=== PATIENT | female | born 1945 | race Caucasian/White ===

== ENCOUNTER → 2019-10-15 | Outpatient (CLI) | payer OTHER ==
[2016-10-19 11:00] VITALS: BP 135/57
[~2019-10-15] MED LIST: AMLO10TA8 PO; AMOX1TAB11 PO; AMOX875T PO; ASPI-482 PO; CETI10TA16 PO; CHOL100013 PO; CIPR500T94 PO; DOCU-109 PO; HYDR-2761 PO; LOSA1TAB22 PO; METO-269 PO; MONT10TA49 PO; MULT-658 PO; ONDA4TAB10 SL; PHEN-318 PO
--- NOTE | 2019-10-15 14:57 | RAD ---
Right lower extremity venous duplex study 10/15/2019 2:54 PM Clinical History: Right leg edema Technique: Using a combination of real time ultrasound imaging and color-flow and pulse Doppler imaging techniques, including spectral analysis, graded compression and augmentation, duplex evaluation of the deep venous system of the right lower extremity was performed. Multiple images were obtained. Findings: There is no sonographic evidence of deep venous thrombosis involving the visualized deep venous structures of the right lower extremity Impression: No evidence of deep venous thrombosis involving the right lower extremity Electronically signed by: Jose Hill MD (10/15/2019 2:54 PM) [id number]
== END | disposition home or self-care (01) ==
LOC: US 13:37
PROVIDERS: ATTEND Family Medicine
DX: R60.0 Localized edema (principal)
CPT/HCPCS: 93971

== ENCOUNTER 2020-08-01 04:40 | Inpatient (IN) | payer MEDICARE, OTHER ==
[~2020-08-01] VITALS: Ht 165.1 cm; Wt 89.1 kg
--- NOTE | 2020-08-01 05:23 | PHYS DOC ---
Past Medical History Past Medical History: Arthritis, Hypertension, Other Additional Past Medical Histor: shingles, pneumonia, IBS (ROXANNE KAUR DO) Past Surgical History: Hysterectomy, Tonsillectomy (VINCENTROXANNE Esther LUCIA) Smoking Status: Never Smoker Alcohol Use: None Drug Use: None (VINCENTROXANNE Esther LUCIA) General Adult EDM: Chief Complaint: ABDOMINAL PAIN HPI: HPI: Patient is a 74 year old female with a past medical history of hypertension and surgical history of appendectomy presents with the chief complaint of abdominal pain. Onset of abdominal pain 2200hrs. Pain located epigastric/LUQ with radiation to right flank and to right shoulder blade. Pain has been constant since onset and fluctuates in intensity. Patient has single episode of vomiting in triage-- nursing states emesis smelled like stool. Patient states she has had urinary frequency since onset of pain but denies any dysuria. Last bowel movement was Saturday. Patient denies any chest pain or shortness of breath. (ROXANNE KAUR DO) Review of Systems: Review of Systems: Constitutional: Denies fever or chills. [] Eyes: Denies change in visual acuity. [] HENT: Denies nasal congestion or sore throat. [] Respiratory: Denies cough or shortness of breath. [] Cardiovascular: Denies chest pain or edema. [] GI: positive abdominal pain nausea and vomiting. : Denies dysuria. [positive urinary frequency] Musculoskeletal: Denies back pain or joint pain. [] Integument: Denies rash. [] Neurologic: Denies headache, focal weakness or sensory changes. [] Endocrine: Denies polyuria or polydipsia. [] Lymphatic: Denies swollen glands. [] Psychiatric: Denies depression or anxiety. [] (ROXANNE KAUR DO) Heart Score: Risk Factors: Risk Factors: DM, Current or recent (<one month) smoker, HTN, HLP, family history of CAD, obesity. Risk Scores: Score 0 - 3: 2.5% MACE over next 6 weeks - Discharge Home Score 4 - 6: 20.3% MACE over next 6 weeks - Admit for Clinical Observation Score 7 - 10: 72.7% MACE over next 6 weeks - Early Invasive Strategies (ROXANNE KAUR DO) Allergies: Allergies: Allergies Coded Allergies Type Severity Reaction Last Updated Verified No Known Drug Allergies 10/17/16 No (ROXANNE KAUR DO) Physical Exam: PE: Constitutional: Well developed, well nourished, no acute distress, non-toxic appearance. [] HENT: Normocephalic, atraumatic, bilateral external ears normal, oropharynx moist, no oral exudates, nose normal. [] Eyes: PERRLA, EOMI, conjunctiva normal, no discharge. [] Neck: Normal range of motion, no tenderness, supple, no stridor. [] Cardiovascular:Heart rate regular rhythm, no murmur [] Lungs & Thorax: Bilateral breath sounds clear to auscultation [] Abdomen: Bowel sounds normal, soft, tenderness epigastric and RUQ, no masses, no pulsatile masses. [] Skin: Warm, dry, no erythema, no rash. [] Back: No tenderness, no CVA tenderness. [] Extremities: No tenderness, no cyanosis, no clubbing, ROM intact, no edema. [] Neurologic: Alert and oriented X 3, normal motor function, normal sensory function, no focal deficits noted. [] Psychologic: Affect normal, judgement normal, mood normal. [] (ROXANNE KAUR DO) Current Patient Data: Vital Signs: Vital Signs Date Time Temp Pulse Resp B/P (MAP) Pulse Ox O2 Delivery O2 Flow Rate FiO2 08/01/20 04:42 97.7 70 18 164/79 (107) 97 Room Air 97.7 (ROXANNE KAUR DO) EKG: EKG: ekg 0516hrs heart rate [address] elevation no st depression no acute [place] [] (ROXANNE KAUR DO) Radiology/Procedures: Radiology/Procedures: [] (ROXANNE KAUR DO) Impression: [facility] [address] [place] [address] IMAGING REPORT Signed PATIENT: TORY BECKMAN ACCOUNT: [id number] : 1945 LOCATION: ER AGE: 74 SEX: F EXAM STATUS: REG ER ORD. PHYSICIAN: ROXANNE KAUR DO REASON: abd pain, OMNI 300 , 60 ML IV PROCEDURE: CT ABD PELV W/ IV CONTRST ONLY PQRS Compliance Statement: One or more of the following individualized dose reduction techniques were utilized for this examination: 1. Automated exposure control 2. Adjustment of the mA and/or kV according to patient size 3. Use of iterative reconstruction technique CT ABD PELV W/ IV CONTRST ONLY Clinical Indication: Reason: abd pain, Comparison: CT abdomen and pelvis without contrast October 16, 2016. Technique: Helical CT imaging of the abdomen and pelvis is performed after 60 cc of Omnipaque 300 IV contrast. Oral contrast not administered. Findings: There are a couple of sub-5 mm nodules in the lung bases. Nodules more inferiorly are stable and therefore benign. Not previously imaged there is a nodule on the first image measuring 5 mm. Cardiac size normal. There is an 11 mm right cardiophrenic lymph node, previously 7 mm. 4.2 cm right hepatic cyst is unchanged. Second cyst in segment 6 appears slightly smaller. Third small cyst in segment 6 is stable. There is mild periportal edema centrally. Correlate to whether there has been recent IV hydration. The gallbladder, spleen, pancreas, adrenal glands, and abdominal aorta caliber are normal. Small left renal cyst is stable and does not require follow-up. Kidneys enhance symmetrically, no hydronephrosis. There is at least one punctate nonobstructing calculus in each kidney. Stomach unremarkable. There is no dilated small bowel. Descending colon is decompressed, limiting evaluation. Appendix is not seen, no secondary signs of appendicitis. No colon wall thickening is identified. No abdominal adenopathy or free fluid. Urinary bladder is normal. There is a partially calcified 2.4 cm uterine fibroid. There is no pelvic free fluid. Mild grade 1 anterolisthesis of L4 and L5. There is disc space narrowing of L5/S1. IMPRESSION: 1. No acute abdominal or pelvic abnormality. 2. There is a 5 mm noncalcified nodule in the right lower lobe. Nodule not previously seen. Recommend CT chest follow-up in 12 months per Fleischner Society guidelines. 3. Right cardiophrenic lymph node has mildly increased in size. Suggest attention on follow-up. 4. Stable hepatic cysts. 5. Punctate bilateral nonobstructing renal calculi. 6. Small partially calcified uterine fibroid. Electronically signed by: Paul Fam MD (08/01/2020 6:57 AM) [facility] DICTATED and SIGNED BY: PAUL FAM MD DATE: 08/01/20 0657 [facility] [address] [place] [address] IMAGING REPORT Signed PATIENT: TORY BECKMAN ACCOUNT: [id number] : 1945 LOCATION: ER AGE: 74 SEX: F EXAM STATUS: REG ER ORD. PHYSICIAN: GALDINO MORRIS DO REASON: RUQ abdominal pain, nausea, vomiting PROCEDURE: ABDOMEN LTD ABDOMEN LTD History: Reason: RUQ abdominal pain, nausea, vomiting / Spl. Instructions: / History: Comparison: CT August 01, 2020. Technique: Transabdominal ultrasound images are obtained of the right upper quadrant. Findings: Visualized pancreas is unremarkable. Liver is normal in echogenicity. Hepatic cysts largest measuring 4.5 cm and 1.7 cm Portal flow is hepatopedal. Cholelithiasis. No gallbladder wall thickening. No pericholecystic fluid. Common bile duct measures 7.8 mm in diameter. The right kidney measures 10.6 x 4.9 x 4.3 cm. No hydronephrosis. Visualized portions of the aorta and IVC have normal caliber. IMPRESSION: 1. Cholelithiasis. 2. Borderline dilated common bile duct, may relate to patient's age. Recommend correlation with biliary lab values. If persistent clinical concern, MRI/MRCP can further evaluate. 3. Hepatic cysts. Electronically signed by: Demetrius Sanders DO (08/01/2020 8:32 AM) [facility] DICTATED and SIGNED BY: DEMETRIUS SANDERS DO DATE: 08/01/20831 (GALDINO MORRIS DO) Course & Med Decision Making: Course & Med Decision Making Pertinent Labs and Imaging studies reviewed. (See chart for details) [] Based upon initial exam work-up consisted of EKG CBC CMP troponin UA and CT abdomen pelvis. Differential diagnosis include [place], gallbladder disease, bowel obstruction, urinary tract infection. After initial examination treatment included IV fluids. Patient declined any pain or nausea medications at this time. (ROXANNE KAUR DO) Dragon Disclaimer: Dragon Disclaimer: This electronic medical record was generated, in whole or in part, using a voice recognition dictation system. (ROXANNE KAUR DO) Departure Departure Impression: Primary Impression: Abdominal pain Additional Impression: Biliary colic Disposition: ADMITTED INPATIENT Admitting Physician: VIJI (DR. BELLAMY) (GALDINO MORRIS DO) Condition: IMPROVED Referrals: Jv WORLEY MD (PCP) Justicifation of Admission Dx: Justifications for Admission: Justification of Admission Dx: Yes (BILIARY COLIC) (GALDINO MORRIS DO) ROXANNE AKUR DO Aug 01, 2020 05:23 GALDINO MORRIS DO Aug 01, 2020 09:35
[2020-08-01 05:46] LABS: CALCIUM 9.5 mg/dL (8.5-10.1); GFR 54.5; POTASSIUM 3.9 mmol/L (3.5-5.1)
[2020-08-01 05:52] LABS: ALBUMIN 3.3 g/dL (3.4-5.0); ALBUMIN/GLOBULIN RATIO 0.9 (1.0-1.7); BASO # 0.1 x10^3/uL (0.0-0.2); BASO % 1 % (0-3); EOS # 0.6 x10^3/uL (0.0-0.7); EOS % 5 % (0-3); HEMATOCRIT 43.2 % (36.0-47.0); HEMOGLOBIN 14.6 g/dL (12.0-15.5); LYMPH # 1.6 x10^3/uL (1.0-4.8); LYMPH % 13 % (24-48); MEAN CORPUSCULAR HEMOGLOBIN 30 pg (25-35); MEAN CORPUSCULAR HGB CONC 34 g/dL (31-37); MEAN CORPUSCULAR VOLUME 88 fL (79-100); MONO # 0.8 x10^3/uL (0.0-1.1); MONO % 7 % (0-9); NEUT # 8.9 x10^3/uL (1.8-7.7); NEUT % 74 % (31-73); PLATELET COUNT 272 x10^3/uL (140-400); RED BLOOD COUNT 4.89 x10^6/uL (3.50-5.40); RED CELL DISTRIBUTION WIDTH 13.5 % (11.5-14.5); TOTAL BILIRUBIN 0.6 mg/dL (0.2-1.0); TOTAL PROTEIN 7.1 g/dL (6.4-8.2); WHITE BLOOD COUNT 12.1 x10^3/uL (4.0-11.0)
[2020-08-01] MEDS ORDERED: CONTRAST GIVEN. MC PRN (06:15)
[2020-08-01] MEDS ORDERED: IOHEXOL 300 MG/ML 100ML VIAL. IV ONE (06:15)
--- NOTE | 2020-08-01 07:00 | RAD ---
PQRS Compliance Statement: One or more of the following individualized dose reduction techniques were utilized for this examination: 1. Automated exposure control 2. Adjustment of the mA and/or kV according to patient size 3. Use of iterative reconstruction technique CT ABD PELV W/ IV CONTRST ONLY Clinical Indication: Reason: abd pain, Comparison: CT abdomen and pelvis without contrast October 16, 2016. Technique: Helical CT imaging of the abdomen and pelvis is performed after 60 cc of Omnipaque 300 IV contrast. Oral contrast not administered. Findings: There are a couple of sub-5 mm nodules in the lung bases. Nodules more inferiorly are stable and therefore benign. Not previously imaged there is a nodule on the first image measuring 5 mm. Cardiac size normal. There is an 11 mm right cardiophrenic lymph node, previously 7 mm. 4.2 cm right hepatic cyst is unchanged. Second cyst in segment 6 appears slightly smaller. Third small cyst in segment 6 is stable. There is mild periportal edema centrally. Correlate to whether there has been recent IV hydration. The gallbladder, spleen, pancreas, adrenal glands, and abdominal aorta caliber are normal. Small left renal cyst is stable and does not require follow-up. Kidneys enhance symmetrically, no hydronephrosis. There is at least one punctate nonobstructing calculus in each kidney. Stomach unremarkable. There is no dilated small bowel. Descending colon is decompressed, limiting evaluation. Appendix is not seen, no secondary signs of appendicitis. No colon wall thickening is identified. No abdominal adenopathy or free fluid. Urinary bladder is normal. There is a partially calcified 2.4 cm uterine fibroid. There is no pelvic free fluid. Mild grade 1 anterolisthesis of L4 and L5. There is disc space narrowing of L5/S1. IMPRESSION: 1. No acute abdominal or pelvic abnormality. 2. There is a 5 mm noncalcified nodule in the right lower lobe. Nodule not previously seen. Recommend CT chest follow-up in 12 months per Fleischner Society guidelines. 3. Right cardiophrenic lymph node has mildly increased in size. Suggest attention on follow-up. 4. Stable hepatic cysts. 5. Punctate bilateral nonobstructing renal calculi. 6. Small partially calcified uterine fibroid. Electronically signed by: Paul Fam MD (08/01/2020 6:57 AM) [facility]
[2020-08-01] MEDS ORDERED: METOCLOPRAMIDE HCL 10 MG/2 ML VIAL. IVP ONE (07:15)
--- NOTE | 2020-08-01 07:16 | EKG ---
[facility] [address] [place] [address] Test Date: 2020-08-01 Test Time: 05:16:38 Pat Name: TORY BECKMAN Department: Room: Gender: F Web Developer Programmer: : 1945 Requested By: ROXANNE KAUR Order Number: [id number] Reading MD: Measurements Intervals [place] Rate: 67 P: 137 MT: 154 QRS: 138 QRSD: 78 T: 121 QT: 404 QTc: 430 Interpretive Statements SUPRAVENTRICULAR RHYTHM ABNORMAL RIGHT AXIS DEVIATION QRS(T) CONTOUR ABNORMALITY CONSISTENT WITH HIGH LATERAL INFARCT AGE UNDETERMINED ABNORMAL ECG RI6.02 No previous ECG available for comparison
[2020-08-01 07:41] LABS: BILIRUBIN,URINE NEGATIVE (NEG); CLARITY,URINE CLEAR; COLOR,URINE YELLOW; NITRITE,URINE NEGATIVE (NEG); PROTEIN,URINE NEGATIVE (NEG-TRACE); UROBILINOGEN,URINE 0.2 mg/dL (0.2 mg/dL)
[2020-08-01] MEDS ORDERED: fentaNYL PF VIAL 100 MCG/2 ML VIAL IVP ONE (07:45)
[2020-08-01 07:59] LABS: BACTERIA,URINE 0 /HPF (0-FEW); SQUAMOUS EPITHELIAL CELL,UR MOD /LPF
--- NOTE | 2020-08-01 08:35 | RAD ---
ABDOMEN LTD History: Reason: RUQ abdominal pain, nausea, vomiting / Spl. Instructions: / History: Comparison: CT August 01, 2020. Technique: Transabdominal ultrasound images are obtained of the right upper quadrant. Findings: Visualized pancreas is unremarkable. Liver is normal in echogenicity. Hepatic cysts largest measuring 4.5 cm and 1.7 cm Portal flow is hepatopedal. Cholelithiasis. No gallbladder wall thickening. No pericholecystic fluid. Common bile duct measures 7.8 mm in diameter. The right kidney measures 10.6 x 4.9 x 4.3 cm. No hydronephrosis. Visualized portions of the aorta and IVC have normal caliber. IMPRESSION: 1. Cholelithiasis. 2. Borderline dilated common bile duct, may relate to patient's age. Recommend correlation with biliary lab values. If persistent clinical concern, MRI/MRCP can further evaluate. 3. Hepatic cysts. Electronically signed by: Demetrius Sanders DO (08/01/2020 8:32 AM) [facility]
[2020-08-01] MEDS ORDERED: PIPERACILLIN/TAZOBACTAM 3.375 GM in IV NORMAL SALINE 50ML 50 ML IV ONE ×2 (09:45→11:00)
[2020-08-01] MEDS ORDERED: ONDANSETRON PF 4 MG/2 ML VIAL. IV PRN ×2 (09:45→10:15)
[2020-08-01] MEDS: IV NORMAL SALINE 1000ML BAG 1,000 ML IV SCH ×4 (09:45→22:24)
[2020-08-01] MEDS ORDERED: MORPHINE SULFATE 2 MG/ML VIAL. IV PRN (09:45)
[2020-08-01] MEDS ORDERED: PIP/TAZO PER PHARMACY MC PRN (09:45)
--- NOTE | 2020-08-01 09:46 | PDOC1 ---
History and Physical Date of Admission Date of Admission DATE: 08/01/20 TIME: 09:43 Identification/Chief Complaint Chief Complaint SEEN IN ER WITH ABD DISCOMFORT 74 year old female with a past medical history of hypertension and surgical history of appendectomy presents with the chief complaint of abdominal pain. Onset of abdominal pain 2200hrs. Pain located epigastric/LUQ with radiation to right flank and to right shoulder blade. Pain has been constant since onset and fluctuates in intensity. Began after BBQ sandwich and ice cream yesterday Patient has single episode of vomiting in triage-- nursing states emesis smelled like stool. Patient states she has had urinary frequency since onset of pain but denies any dysuria. Last bowel movement was Saturday. Patient denies any chest pain or shortness of breath. Past Medical History Past Medical History Past Medical History Past Medical History Past Medical History: Arthritis, Hypertension, Other Additional Past Medical Histor: shingles, pneumonia, IBS Past Surgical History: Hysterectomy, Tonsillectomy Smoking Status: Never Smoker Alcohol Use: None Drug Use: None fhx obesity Past Medical History Cardiovascular: HTN Pulmonary: No pertinent hx GI: No pertinent hx Heme/Onc: No pertinent hx Hepatobiliary: No pertinent hx Psych: No pertinent hx Rheumatologic: No pertinent hx Infectious disease: No pertinent hx ENT: No pertinent hx Renal/: No pertinent hx Endocrine: No pertinent hx Dermatology: No pertinent hx Past Surgical History Past Surgical History: Tonsillectomy, Other (Dilation and curretage) Family History Family History: Cancer (Mom had ovarian cancer, pt's BRCA testing was negative) Social History Smoke: No ALCOHOL: none Drugs: None Cardiovascular: HTN Pulmonary: No pertinent hx GI: No pertinent hx Heme/Onc: No pertinent hx Hepatobiliary: No pertinent hx Psych: No pertinent hx Rheumatologic: No pertinent hx Infectious disease: No pertinent hx Renal/: No pertinent hx Endocrine: No pertinent hx Past Surgical History Past Surgical History: Tonsillectomy, Other Family History Family History: Cancer, Hypertension Social History Smoke: No ALCOHOL: none Drugs: None Current Problem List Problem List Problems Medical Problems: (1) Abdominal pain Status: Acute (2) Biliary colic Status: Acute Current Medications Current Medications Current Medications Iohexol (Omnipaque 300 Mg/ml) 60 ml 1X ONCE IV Last administered on 08/01/20at 06:17; Start 08/01/20 at 06:15; Stop 08/01/20 at 06:16; Status DC Info (CONTRAST GIVEN -- Rx MONITORING) 1 each PRN DAILY PRN MC SEE COMMENTS; Start 08/01/20 at 06:15; Stop 08/03/20 at 06:14 Metoclopramide HCl (Reglan Vial) 10 mg 1X ONCE IVP Last administered on 08/01/20at 07:21; Start 08/01/20 at 07:15; Stop 08/01/20 at 07:16; Status DC Fentanyl Citrate (Fentanyl 2ml Vial) 50 mcg 1X ONCE IVP Last administered on 08/01/20at 07:48; Start 08/01/20 at 07:45; Stop 08/01/20 at 07:48; Status DC Piperacillin Sod/ Tazobactam Sod (Zosyn Per Pharmacy) 1 each PRN DAILY PRN MC SEE COMMENTS; Start 08/01/20 at 09:45; Status UNV Active Scripts Active Hydrocodone-Apap 5-325 (Hydrocodone Bit/Acetaminophen) 1 Each Tablet 1 Tab PO PRN Q4HRS PRN Colace (Docusate Sodium) 100 Mg Capsule 100 Mg PO BID Cetirizine Hcl 10 Mg Tablet 10 Mg PO DAILY Amox Tr-K Clv 875-125 Mg Tab (Amoxicillin/Potassium Clav) 1 Each Tablet 1 Tab PO BID Reported Toprol Xl (Metoprolol Succinate) 50 Mg Tab.er.24h 50 Mg PO DAILY Montelukast Sodium Tablet (Montelukast Sodium) 10 Mg Tablet 10 Mg PO DAILY Amlodipine Besylate 10 Mg Tablet 10 Mg PO DAILY Centrum Silver Tablet (Multivits-Min/Fa/Lycopene/Lut) 1 Each Tablet 1 Each PO DAILY Aspir 81 (Aspirin) 81 Mg Tablet.dr 81 Mg PO DAILY Vitamin D (Cholecalciferol (Vitamin D3)) 1,000 Unit Capsule 1,000 Unit PO DAILY Losartan-Hctz 100-25 Mg Tab (Losartan/Hydrochlorothiazide) 1 Each Tablet 1 Each PO DAILY Allergies Allergies: Coded Allergies: No Known Drug Allergies (Unverified , 10/17/16) ROS Review of System Review of Systems: Constitutional: Denies fever or chills. [] Eyes: Denies change in visual acuity. [] HENT: Denies nasal congestion or sore throat. [] Respiratory: Denies cough or shortness of breath. [] Cardiovascular: Denies chest pain or edema. [] GI: positive abdominal pain nausea and vomiting. : Denies dysuria. [positive urinary frequency] Musculoskeletal: Denies back pain or joint pain. [] Integument: Denies rash. [] Neurologic: Denies headache, focal weakness or sensory changes. [] Endocrine: Denies polyuria or polydipsia. [] Lymphatic: Denies swollen glands. [] Psychiatric: Denies depression or anxiety. [] 14 pt ros neg except as documented Physical Exam Physical Exam Constitutional: Well developed, well nourished, no acute distress, non-toxic appearance. [] HENT: Normocephalic, atraumatic, bilateral external ears normal, oropharynx moist, no oral exudates, nose normal. [] Eyes: PERRLA, EOMI, conjunctiva normal, no discharge. [] Neck: Normal range of motion, no tenderness, supple, no stridor. [] Cardiovascular:Heart rate regular rhythm, no murmur [] Lungs & Thorax: Bilateral breath sounds clear to auscultation [] Abdomen: Bowel sounds normal, soft, tenderness epigastric and RUQ, no masses, no pulsatile masses. [] Skin: Warm, dry, no erythema, no rash. [] Back: No tenderness, no CVA tenderness. [] Extremities: No tenderness, no cyanosis, no clubbing, ROM intact, no edema. [] Neurologic: Alert and oriented X 3, normal motor function, normal sensory function, no focal deficits noted. [] Psychologic: Affect normal, judgement normal, mood normal. [] General: Alert, Oriented X3, Cooperative HEENT: Atraumatic, EOMI, Mucous membr. moist/pink Lungs: Clear to auscultation, Normal air movement Heart: RRR, no thrills, no gallops Breasts: Not examined Abdomen: Normal bowel sounds, No masses Rectal Exam: not examined PELVIC: Examination not indicated Extremities: No cyanosis, No edema Skin: No significant lesion Neuro: Normal speech, Sensation intact, Cranial nerves 3-12 NL Psych/Mental Status: Mental status NL, Mood NL Vitals Vitals Vital Signs Date Time Temp Pulse Resp B/P (MAP) Pulse Ox O2 Delivery O2 Flow Rate FiO2 08/01/20 07:48 18 95 Room Air 08/01/20 05:24 69 162/70 (100) 08/01/20 04:42 97.7 97.7 Labs Labs Laboratory Tests Test 08/01/20 05:26 08/01/20 07:24 White Blood Count 12.1 x10^3/uL (4.0-11.0) Red Blood Count 4.89 x10^6/uL (3.50-5.40) Hemoglobin 14.6 g/dL (12.0-15.5) Hematocrit 43.2 % (36.0-47.0) Mean Corpuscular Volume 88 fL (79-100) Mean Corpuscular Hemoglobin 30 pg (25-35) Mean Corpuscular Hemoglobin Concent 34 g/dL (31-37) Red Cell Distribution Width 13.5 % (11.5-14.5) Platelet Count 272 x10^3/uL (140-400) Neutrophils (%) (Auto) 74 % (31-73) Lymphocytes (%) (Auto) 13 % (24-48) Monocytes (%) (Auto) 7 % (0-9) Eosinophils (%) (Auto) 5 % (0-3) Basophils (%) (Auto) 1 % (0-3) Neutrophils # (Auto) 8.9 x10^3/uL (1.8-7.7) Lymphocytes # (Auto) 1.6 x10^3/uL (1.0-4.8) Monocytes # (Auto) 0.8 x10^3/uL (0.0-1.1) Eosinophils # (Auto) 0.6 x10^3/uL (0.0-0.7) Basophils # (Auto) 0.1 x10^3/uL (0.0-0.2) Sodium Level 144 mmol/L (136-145) Potassium Level 3.9 mmol/L (3.5-5.1) Chloride Level 106 mmol/L (98-107) Carbon Dioxide Level 29 mmol/L (21-32) Anion Gap 9 (6-14) Blood Urea Nitrogen 17 mg/dL (7-20) Creatinine 1.0 mg/dL (0.6-1.0) Estimated GFR (Cockcroft-Gault) 54.5 BUN/Creatinine Ratio 17 (6-20) Glucose Level 129 mg/dL (70-99) Calcium Level 9.5 mg/dL (8.5-10.1) Total Bilirubin 0.6 mg/dL (0.2-1.0) Aspartate Amino Transf (AST/SGOT) 35 U/L (15-37) Alanine Aminotransferase (ALT/SGPT) 36 U/L (14-59) Alkaline Phosphatase 181 U/L (46-116) Troponin I Quantitative < 0.017 ng/mL (0.000-0.055) Total Protein 7.1 g/dL (6.4-8.2) Albumin 3.3 g/dL (3.4-5.0) Albumin/Globulin Ratio 0.9 (1.0-1.7) Lipase 177 U/L (73-393) Urine Collection Type Void Urine Color Yellow Urine Clarity Clear Urine pH 7.0 (<5.0-8.0) Urine Specific [place] >=1.030 (1.000-1.030) Urine Protein Negative mg/dL (NEG-TRACE) Urine Glucose (UA) Negative mg/dL (NEG) Urine Ketones (Stick) Negative mg/dL (NEG) Urine Blood Negative (NEG) Urine Nitrite Negative (NEG) Urine Bilirubin Negative (NEG) Urine Urobilinogen Dipstick 0.2 mg/dL (0.2 mg/dL) Urine Leukocyte Esterase Moderate (NEG) Urine RBC 3-5 /HPF (0-2) Urine WBC 5-10 /HPF (0-4) Urine Squamous Epithelial Cells Mod /LPF Urine Transitional Epithelial Cells Occ /LPF Urine Bacteria 0 /HPF (0-FEW) Laboratory Tests Test 08/01/20 05:26 08/01/20 07:24 White Blood Count 12.1 x10^3/uL (4.0-11.0) Red Blood Count 4.89 x10^6/uL (3.50-5.40) Hemoglobin 14.6 g/dL (12.0-15.5) Hematocrit 43.2 % (36.0-47.0) Mean Corpuscular Volume 88 fL (79-100) Mean Corpuscular Hemoglobin 30 pg (25-35) Mean Corpuscular Hemoglobin Concent 34 g/dL (31-37) Red Cell Distribution Width 13.5 % (11.5-14.5) Platelet Count 272 x10^3/uL (140-400) Neutrophils (%) (Auto) 74 % (31-73) Lymphocytes (%) (Auto) 13 % (24-48) Monocytes (%) (Auto) 7 % (0-9) Eosinophils (%) (Auto) 5 % (0-3) Basophils (%) (Auto) 1 % (0-3) Neutrophils # (Auto) 8.9 x10^3/uL (1.8-7.7) Lymphocytes # (Auto) 1.6 x10^3/uL (1.0-4.8) Monocytes # (Auto) 0.8 x10^3/uL (0.0-1.1) Eosinophils # (Auto) 0.6 x10^3/uL (0.0-0.7) Basophils # (Auto) 0.1 x10^3/uL (0.0-0.2) Sodium Level 144 mmol/L (136-145) Potassium Level 3.9 mmol/L (3.5-5.1) Chloride Level 106 mmol/L (98-107) Carbon Dioxide Level 29 mmol/L (21-32) Anion Gap 9 (6-14) Blood Urea Nitrogen 17 mg/dL (7-20) Creatinine 1.0 mg/dL (0.6-1.0) Estimated GFR (Cockcroft-Gault) 54.5 BUN/Creatinine Ratio 17 (6-20) Glucose Level 129 mg/dL (70-99) Calcium Level 9.5 mg/dL (8.5-10.1) Total Bilirubin 0.6 mg/dL (0.2-1.0) Aspartate Amino Transf (AST/SGOT) 35 U/L (15-37) Alanine Aminotransferase (ALT/SGPT) 36 U/L (14-59) Alkaline Phosphatase 181 U/L (46-116) Troponin I Quantitative < 0.017 ng/mL (0.000-0.055) Total Protein 7.1 g/dL (6.4-8.2) Albumin 3.3 g/dL (3.4-5.0) Albumin/Globulin Ratio 0.9 (1.0-1.7) Lipase 177 U/L (73-393) Urine Collection Type Void Urine Color Yellow Urine Clarity Clear Urine pH 7.0 (<5.0-8.0) Urine Specific [place] >=1.030 (1.000-1.030) Urine Protein Negative mg/dL (NEG-TRACE) Urine Glucose (UA) Negative mg/dL (NEG) Urine Ketones (Stick) Negative mg/dL (NEG) Urine Blood Negative (NEG) Urine Nitrite Negative (NEG) Urine Bilirubin Negative (NEG) Urine Urobilinogen Dipstick 0.2 mg/dL (0.2 mg/dL) Urine Leukocyte Esterase Moderate (NEG) Urine RBC 3-5 /HPF (0-2) Urine WBC 5-10 /HPF (0-4) Urine Squamous Epithelial Cells Mod /LPF Urine Transitional Epithelial Cells Occ /LPF Urine Bacteria 0 /HPF (0-FEW) Images Images ABDOMEN LTD History: Reason: RUQ abdominal pain, nausea, vomiting / Spl. Instructions: / History: Comparison: CT August 01, 2020. Technique: Transabdominal ultrasound images are obtained of the right upper quadrant. Findings: Visualized pancreas is unremarkable. Liver is normal in echogenicity. Hepatic cysts largest measuring 4.5 cm and 1.7 cm Portal flow is hepatopedal. Cholelithiasis. No gallbladder wall thickening. No pericholecystic fluid. Common bile duct measures 7.8 mm in diameter. The right kidney measures 10.6 x 4.9 x 4.3 cm. No hydronephrosis. Visualized portions of the aorta and IVC have normal caliber. IMPRESSION: 1. Cholelithiasis. 2. Borderline dilated common bile duct, may relate to patient's age. Recommend correlation with biliary lab values. If persistent clinical concern, MRI/MRCP can further evaluate. 3. Hepatic cysts. Electronically signed by: Demetrius Sanders DO (08/01/2020 8:32 AM) [facility] DICTATED and SIGNED BY: DEMETRIUS SANDERS DO DATE: 08/01/20 0832 PATIENT: TORY BECKMAN ACCOUNT: [id number] : 1945 LOCATION: ER AGE: 74 SEX: F EXAM STATUS: REG ER ORD. PHYSICIAN: ROXANNE KAUR DO REASON: abd pain, OMNI 300 , 60 ML IV PROCEDURE: CT ABD PELV W/ IV CONTRST ONLY PQRS Compliance Statement: One or more of the following individualized dose reduction techniques were utilized for this examination: 1. Automated exposure control 2. Adjustment of the mA and/or kV according to patient size 3. Use of iterative reconstruction technique CT ABD PELV W/ IV CONTRST ONLY Clinical Indication: Reason: abd pain, Comparison: CT abdomen and pelvis without contrast October 16, 2016. Technique: Helical CT imaging of the abdomen and pelvis is performed after 60 cc of Omnipaque 300 IV contrast. Oral contrast not administered. Findings: There are a couple of sub-5 mm nodules in the lung bases. Nodules more inferiorly are stable and therefore benign. Not previously imaged there is a nodule on the first image measuring 5 mm. Cardiac size normal. There is an 11 mm right cardiophrenic lymph node, previously 7 mm. 4.2 cm right hepatic cyst is unchanged. Second cyst in segment 6 appears slightly smaller. Third small cyst in segment 6 is stable. There is mild periportal edema centrally. Correlate to whether there has been recent IV hydration. The gallbladder, spleen, pancreas, adrenal glands, and abdominal aorta caliber are normal. Small left renal cyst is stable and does not require follow-up. Kidneys enhance symmetrically, no hydronephrosis. There is at least one punctate nonobstructing calculus in each kidney. Stomach unremarkable. There is no dilated small bowel. Descending colon is decompressed, limiting evaluation. Appendix is not seen, no secondary signs of appendicitis. No colon wall thickening is identified. No abdominal adenopathy or free fluid. Urinary bladder is normal. There is a partially calcified 2.4 cm uterine fibroid. There is no pelvic free fluid. Mild grade 1 anterolisthesis of L4 and L5. There is disc space narrowing of L5/S1. IMPRESSION: 1. No acute abdominal or pelvic abnormality. 2. There is a 5 mm noncalcified nodule in the right lower lobe. Nodule not previously seen. Recommend CT chest follow-up in 12 months per Fleischner Society guidelines. 3. Right cardiophrenic lymph node has mildly increased in size. Suggest attention on follow-up. 4. Stable hepatic cysts. 5. Punctate bilateral nonobstructing renal calculi. 6. Small partially calcified uterine fibroid. Electronically signed by: Paul Fam MD (08/01/2020 6:57 AM) [facility] DICTATED and SIGNED BY: PAUL FAM MD DATE: 08/01/20 0657 VTE Prophylaxis Ordered VTE Prophylaxis Devices: Yes VTE Pharmacological Prophylaxi: Yes Assessment/Plan Assessment/Plan IMPRESSION: 1. Cholelithiasis., appears to be symptomatic 2. Borderline dilated common bile duct, may relate to patient's age. correlation with biliary lab values. MRI/MRCP can further evaluate. 3. 5 mm noncalcified nodule in the right lower lobe. Nodule not previously seen. Recommend CT chest follow-up in 12 months per Fleischner Society guidelines. 4. LABILE HYPERTENSION 5. POSSIBLE UTI plan admit NPO GI CONSULT PRN IV HYDRALAZINE 10MG Q 4 HRS PRN IV FLUID SUPPORT iv pain control dvt prophylaxis D/W ER DR Justifications for Admission Other Justification BHUPENDRA BELLAMY MD Aug 01, 2020 09:46
[2020-08-01] MEDS ORDERED: hydrALAZINE 20 MG/ML VIAL. IVP PRN (10:00)
[2020-08-01] MEDS ORDERED: DOCUSATE SODIUM 100 MG CAPSULE. PO PRN (10:15)
[2020-08-01] MEDS ORDERED: LORazepam 0.5 MG TABLET PO PRN (10:15)
[2020-08-01] MEDS ORDERED: ACETAMINOPHEN 325 MG TABLET. PO PRN (10:15)
[2020-08-01] MEDS ORDERED: guaiFENesin ORAL 200 MG/10 ML LIQUID. PO PRN (10:15)
[2020-08-01] MEDS ORDERED: cloNIDine HCL 0.1 MG TABLET PO PRN (10:15)
[2020-08-01] MEDS ORDERED: ALBUTEROL SULFATE 2.5 MG/3 ML NEBU. NEB PRN (10:15)
[2020-08-01] MEDS ORDERED: SODIUM PHOSPHATES 19/7GM 133 ML ENEMA. PR PRN (10:15)
[2020-08-01] MEDS ORDERED: HYDROmorphone 2 MG/ML VIAL IVP PRN (10:15)
[2020-08-01] MEDS ORDERED: 0.9 % SODIUM CHLORIDE 10 ML DISP.SYRIN. IV PRN (10:15)
[2020-08-01] MEDS ORDERED: MAG HYDROX/ALUMINUM HYD/SIMETH 30 ML ORAL.SUSP PO PRN (10:15)
[2020-08-01] MEDS: ENOXAPARIN 40 MG/0.4 ML SYRINGE. SQ SCH (11:00)
[2020-08-01 11:23] VITALS: BP 153/70
[2020-08-01 15:21] VITALS: BP 167/68
--- NOTE | 2020-08-01 15:54 | PDOC2 ---
GI CONSULT Date of Service: DATE: 08/01/20 TIME: 15:44 Reason For Consult: Symptomatic gallstones HPI: HPI: 74 y/o female who had onset of epigastric pain last evening; radiated to right scapula. Tried one dose of antacid which was not effective. One episode of N and V in ER, none since. Says pain-free currently. CT not remarkable for acute process, but on ultrasound, had cholelithiasis. No previous history of this. Denies heartburn, dysphagia, PUD, liver or pancreatic issues. No tobacco use. Occasional alcohol. ASA 81mg daily; no other NSAIDs. No diarrhea, constipation, overt bleeding. Colonoscopy 2012 normal screening exam. Wt/appetite OK. Surgical opinion pending. PMH: PMH: HTN, OA, PNA. S/p tonsillectomy. FH: Family History: No pertinent hx Social History: Smoke: No ALCOHOL: none Drugs: None ROS: GEN: Denies fevers, chills, sweats HEENT: Denies blurred vision, sore throat CV: Denies chest pain RESP: Denies shortness of air, cough GI: Per HPI : Denies hematuria, dysuria ENDO: Denies weight changes NEURO: Denies confusion, dizziness MSK: Denies weakness, joint pain/swelling SKIN: Denies jaundice, pruritus Vitals: Vitals: Vital Signs Date Time Temp Pulse Resp B/P (MAP) Pulse Ox O2 Delivery O2 Flow Rate FiO2 08/01/20 15:21 99.3 73 17 167/68 (101) 92 Room Air 99.3 Labs: Labs: Laboratory Tests Test 08/01/20 05:26 08/01/20 07:24 08/01/20 09:47 08/01/20 11:08 White Blood Count 12.1 x10^3/uL (4.0-11.0) Red Blood Count 4.89 x10^6/uL (3.50-5.40) Hemoglobin 14.6 g/dL (12.0-15.5) Hematocrit 43.2 % (36.0-47.0) Mean Corpuscular Volume 88 fL (79-100) Mean Corpuscular Hemoglobin 30 pg (25-35) Mean Corpuscular Hemoglobin Concent 34 g/dL (31-37) Red Cell Distribution Width 13.5 % (11.5-14.5) Platelet Count 272 x10^3/uL (140-400) Neutrophils (%) (Auto) 74 % (31-73) Lymphocytes (%) (Auto) 13 % (24-48) Monocytes (%) (Auto) 7 % (0-9) Eosinophils (%) (Auto) 5 % (0-3) Basophils (%) (Auto) 1 % (0-3) Neutrophils # (Auto) 8.9 x10^3/uL (1.8-7.7) Lymphocytes # (Auto) 1.6 x10^3/uL (1.0-4.8) Monocytes # (Auto) 0.8 x10^3/uL (0.0-1.1) Eosinophils # (Auto) 0.6 x10^3/uL (0.0-0.7) Basophils # (Auto) 0.1 x10^3/uL (0.0-0.2) Sodium Level 144 mmol/L (136-145) Potassium Level 3.9 mmol/L (3.5-5.1) Chloride Level 106 mmol/L (98-107) Carbon Dioxide Level 29 mmol/L (21-32) Anion Gap 9 (6-14) Blood Urea Nitrogen 17 mg/dL (7-20) Creatinine 1.0 mg/dL (0.6-1.0) Estimated GFR (Cockcroft-Gault) 54.5 BUN/Creatinine Ratio 17 (6-20) Glucose Level 129 mg/dL (70-99) Calcium Level 9.5 mg/dL (8.5-10.1) Total Bilirubin 0.6 mg/dL (0.2-1.0) Aspartate Amino Transf (AST/SGOT) 35 U/L (15-37) Alanine Aminotransferase (ALT/SGPT) 36 U/L (14-59) Alkaline Phosphatase 181 U/L (46-116) Troponin I Quantitative < 0.017 ng/mL (0.000-0.055) < 0.017 ng/mL (0.000-0.055) Total Protein 7.1 g/dL (6.4-8.2) Albumin 3.3 g/dL (3.4-5.0) Albumin/Globulin Ratio 0.9 (1.0-1.7) Lipase 177 U/L (73-393) Urine Collection Type Void Urine Color Yellow Urine Clarity Clear Urine pH 7.0 (<5.0-8.0) Urine Specific [place] >=1.030 (1.000-1.030) Urine Protein Negative mg/dL (NEG-TRACE) Urine Glucose (UA) Negative mg/dL (NEG) Urine Ketones (Stick) Negative mg/dL (NEG) Urine Blood Negative (NEG) Urine Nitrite Negative (NEG) Urine Bilirubin Negative (NEG) Urine Urobilinogen Dipstick 0.2 mg/dL (0.2 mg/dL) Urine Leukocyte Esterase Moderate (NEG) Urine RBC 3-5 /HPF (0-2) Urine WBC 5-10 /HPF (0-4) Urine Squamous Epithelial Cells Mod /LPF Urine Transitional Epithelial Cells Occ /LPF Urine Bacteria 0 /HPF (0-FEW) SARS-CoV-2 Antigen (Rapid) Negative (NEGATIVE) Allergies: Coded Allergies: No Known Drug Allergies (Unverified , 10/17/16) Medications: Current Medications Medications (Trade) Dose Ordered Sig/Lynn Route PRN Reason Start Time Stop Time Status Last Admin Dose Admin Iohexol (Omnipaque 300 Mg/ml) 60 ml 1X ONCE IV 08/01/20 06:15 08/01/20 06:16 DC 08/01/20 06:17 Metoclopramide HCl (Reglan Vial) 10 mg 1X ONCE IVP 08/01/20 07:15 08/01/20 07:16 DC 08/01/20 07:21 Fentanyl Citrate (Fentanyl 2ml Vial) 50 mcg 1X ONCE IVP 08/01/20 07:45 08/01/20 07:48 DC 08/01/20 07:48 Piperacillin Sod/ Tazobactam Sod 3.375 gm/Sodium Chloride 50 ml @ 100 mls/hr 1X ONCE IV 08/01/20 09:45 08/01/20 10:14 DC 08/01/20 10:12 Sodium Chloride 1,000 ml @ 80 mls/hr [id number] IV 08/01/20 10:07 08/01/20 11:56 Piperacillin Sod/ Tazobactam Sod 3.375 gm/Sodium Chloride 50 ml @ 100 mls/hr 1X ONCE IV 08/01/20 11:00 08/01/20 11:29 DC 08/01/20 11:56 Imaging: Imaging: Sono with gallstones. PE: GEN: NAD HEENT: Atraumatic, PERRLA LUNGS: CTAB HEART: RRR, no murmurs ABD: NABS, S/ND/mild upper abdominal tenderness, no masses EXTREMITY: No edema SKIN: No rashes, no jaundice NEURO/PSYCH: A & O 3 A/P: A/P: IMP: Fairly classic symptoms of GB colic. Only isolated elevation of alk phos, mild. Doesn't seem high risk for choledocholithiasis. REC: Await surgical opinion; NPO until they see. Follow labs. Likely to consider cholecystectomy this admit. ZENY CHENEY MD Aug 01, 2020 15:54
[2020-08-01] MEDS ORDERED: ACET500T68 PO (16:20)
[2020-08-01] MEDS ORDERED: CRAN500T2 PO (16:20)
[2020-08-01] MEDS: PIPERACILLIN/TAZOBACTAM 3.375 GM in IV NORMAL SALINE 50ML 50 ML IV SCH ×2 (18:03→23:46)
[2020-08-01 19:25] VITALS: BP 148/66
[2020-08-01 19:30] VITALS: BP 132/56
[2020-08-01 22:50] VITALS: BP 129/38
[2020-08-02 03:15] VITALS: BP 149/68
[2020-08-02] MEDS: IV NORMAL SALINE 1000ML BAG 1,000 ML IV SCH ×3 (05:45→23:59)
[2020-08-02] MEDS: PIPERACILLIN/TAZOBACTAM 3.375 GM in IV NORMAL SALINE 50ML 50 ML IV SCH ×4 (05:47→23:59)
[2020-08-02 07:00] VITALS: BP 153/58
[2020-08-02 07:34] LABS: BASO # 0.2 x10^3/uL (0.0-0.2); BASO % 2 % (0-3); EOS # 0.5 x10^3/uL (0.0-0.7); EOS % 5 % (0-3); HEMATOCRIT 40.5 % (36.0-47.0); HEMOGLOBIN 13.8 g/dL (12.0-15.5); LYMPH # 1.6 x10^3/uL (1.0-4.8); LYMPH % 16 % (24-48); MEAN CORPUSCULAR HEMOGLOBIN 30 pg (25-35); MEAN CORPUSCULAR HGB CONC 34 g/dL (31-37); MEAN CORPUSCULAR VOLUME 88 fL (79-100); MONO # 0.9 x10^3/uL (0.0-1.1); MONO % 10 % (0-9); NEUT # 6.5 x10^3/uL (1.8-7.7); NEUT % 67 % (31-73); PLATELET COUNT 267 x10^3/uL (140-400); RED BLOOD COUNT 4.61 x10^6/uL (3.50-5.40); RED CELL DISTRIBUTION WIDTH 13.7 % (11.5-14.5); WHITE BLOOD COUNT 9.7 x10^3/uL (4.0-11.0)
[2020-08-02 07:44] LABS: CALCIUM 8.2 mg/dL (8.5-10.1); CREATININE 0.9 mg/dL (0.6-1.0); GFR 61.5; POTASSIUM 3.6 mmol/L (3.5-5.1)
[2020-08-02 07:49] LABS: ALBUMIN 2.7 g/dL (3.4-5.0); ALBUMIN/GLOBULIN RATIO 0.7 (1.0-1.7); TOTAL BILIRUBIN 0.7 mg/dL (0.2-1.0); TOTAL PROTEIN 6.6 g/dL (6.4-8.2)
--- NOTE | 2020-08-02 08:31 | PDOC2 ---
NORA BUENROSTRO TALK SHOW HOST 08/02/20 0831: CONSULT Date of Consult Date of Consult DATE: 08/02/20 TIME: 08:27 Reason for Consult Reason for Consult: cholelithiasis Referring Physician Referring Physician: ER Identification/Chief Complaint Chief Complaint abdominal pain Source Source: Chart review, Patient History of Present Illness Reason for Visit: Started with epigastric, abdominal pain saturday evening. She did report [place] food for dinner saturday. No similar symptoms in past. Emesis in ER. The pain progressed to scapula and back. Improved after admission Past Medical History Cardiovascular: HTN Pulmonary: No pertinent hx GI: No pertinent hx Heme/Onc: No pertinent hx Hepatobiliary: No pertinent hx Psych: No pertinent hx Rheumatologic: No pertinent hx Infectious disease: No pertinent hx Renal/: No pertinent hx Endocrine: No pertinent hx Past Surgical History Past Surgical History: Appendectomy, Tonsillectomy Family History Family History: Cancer, Hypertension Social History No ALCOHOL: social Drugs: None Lives: with Family Current Problem List Problem List Problems Medical Problems: (1) Abdominal pain Status: Acute (2) Biliary colic Status: Acute Current Medications Current Medications Current Medications Iohexol (Omnipaque 300 Mg/ml) 60 ml 1X ONCE IV Last administered on 08/01/20at 06:17; Start 08/01/20 at 06:15; Stop 08/01/20 at 06:16; Status DC Info (CONTRAST GIVEN -- Rx MONITORING) 1 each PRN DAILY PRN MC SEE COMMENTS; Start 08/01/20 at 06:15; Stop 08/03/20 at 06:14 Metoclopramide HCl (Reglan Vial) 10 mg 1X ONCE IVP Last administered on 08/01/20at 07:21; Start 08/01/20 at 07:15; Stop 08/01/20 at 07:16; Status DC Fentanyl Citrate (Fentanyl 2ml Vial) 50 mcg 1X ONCE IVP Last administered on 08/01/20at 07:48; Start 08/01/20 at 07:45; Stop 08/01/20 at 07:48; Status DC Piperacillin Sod/ Tazobactam Sod (Zosyn Per Pharmacy) 1 each PRN DAILY PRN MC SEE COMMENTS; Start 08/01/20 at 09:45 Piperacillin Sod/ Tazobactam Sod 3.375 gm/Sodium Chloride 50 ml @ 100 mls/hr 1X ONCE IV Last administered on 08/01/20at 10:12; Start 08/01/20 at 09:45; Stop 08/01/20 at 10:14; Status DC Ondansetron HCl (Zofran) 4 mg PRN Q8HRS PRN IV NAUSEA/VOMITING; Start 08/01/20 at 09:45; Stop 08/02/20 at 09:44 Morphine Sulfate (Morphine Sulfate) 2 mg PRN Q2HR PRN IV MODERATE TO SEVERE PAIN; Start 08/01/20 at 09:45; Stop 08/02/20 at 09:44 Sodium Chloride 1,000 ml @ 100 mls/hr Q10H IV ; Start 08/01/20 at 09:45; Stop 08/02/20 at 09:44 Hydralazine HCl (Apresoline Inj) 10 mg PRN Q4HRS PRN IVP ELEVATED BP, SEE COMMENTS; Start 08/01/20 at 10:00 Sodium Chloride (Normal Saline Flush) 3 ml QSHIFT PRN IV AFTER MEDS AND BLOOD DRAWS; Start 08/01/20 at 10:15 Sodium Chloride 1,000 ml @ 80 mls/hr [id number] IV Last administered on 08/01/20at 22:24; Start 08/01/20 at 10:07 Ondansetron HCl (Zofran) 4 mg PRN Q4HRS PRN IV NAUSEA/VOMITING; Start 08/01/20 at 10:15 Acetaminophen (Tylenol) 650 mg PRN Q4HRS PRN PO TEMP OVER 100.4F OR MILD PAIN; Start 08/01/20 at 10:15 Al Hydroxide/Mg Hydroxide (Mylanta Plus Xs) 30 ml PRN DAILY PRN PO HEARTBURN / GAS; Start 08/01/20 at 10:15 Clonidine HCl (Catapres) 0.1 mg PRN Q6HRS PRN PO SBP>160 OR DBP>90; Start 08/01/20 at 10:15 Sodium Monofluorophosphate (Fleet Adult) 133 ml PRN DAILY PRN [place] CONSTIPATION; Start 08/01/20 at 10:15 Docusate Sodium (Colace) 100 mg PRN BID PRN PO HARD STOOLS; Start 08/01/20 at 10:15 Albuterol Sulfate (Ventolin Neb Soln) 2.5 mg PRN Q4HRS PRN NEB SHORTNESS OF BREATH; Start 08/01/20 at 10:15 Guaifenesin (Robitussin) 200 mg PRN Q4HRS PRN PO COUGH; Start 08/01/20 at 10:15 Lorazepam (Ativan) 0.5 mg PRN Q4HRS PRN PO ANXIETY / AGITATION; Start 08/01/20 at 10:15 Enoxaparin Sodium (Lovenox 40mg Syringe) 40 mg Q24H SQ ; Start 08/01/20 at 11:00 Hydromorphone HCl (Dilaudid) 0.5 mg PRN Q3HRS PRN IVP SEVERE PAIN 7-10; Start 08/01/20 at 10:15 Piperacillin Sod/ Tazobactam Sod 3.375 gm/Sodium Chloride 50 ml @ 100 mls/hr 1X ONCE IV Last administered on 08/01/20at 11:56; Start 08/01/20 at 11:00; Stop 08/01/20 at 11:29; Status DC Piperacillin Sod/ Tazobactam Sod 3.375 gm/Sodium Chloride 50 ml @ 100 mls/hr Q6HRS IV Last administered on 08/02/20at 05:47; Start 08/01/20 at 18:00 Active Scripts Active Hydrocodone-Apap 5-325 (Hydrocodone Bit/Acetaminophen) 1 Each Tablet 1 Tab PO PRN Q4HRS PRN Colace (Docusate Sodium) 100 Mg Capsule 100 Mg PO BID Cetirizine Hcl 10 Mg Tablet 10 Mg PO DAILY Amox Tr-K Clv 875-125 Mg Tab (Amoxicillin/Potassium Clav) 1 Each Tablet 1 Tab PO BID Reported Cranberry (Cranberry Extract) 500 Mg Tablet 500 Mg PO DAILY Acetaminophen 500 Mg Tablet 1 Tab PO PRN Q6HRS PRN 15 Days Toprol Xl (Metoprolol Succinate) 50 Mg Tab.er.24h 50 Mg PO DAILY Montelukast Sodium Tablet (Montelukast Sodium) 10 Mg Tablet 10 Mg PO DAILY Amlodipine Besylate 10 Mg Tablet 10 Mg PO DAILY Centrum Silver Tablet (Multivits-Min/Fa/Lycopene/Lut) 1 Each Tablet 1 Each PO DAILY Aspir 81 (Aspirin) 81 Mg Tablet.dr 81 Mg PO DAILY Vitamin D (Cholecalciferol (Vitamin D3)) 1,000 Unit Capsule 1,000 Unit PO DAILY Losartan-Hctz 100-25 Mg Tab (Losartan/Hydrochlorothiazide) 1 Each Tablet 1 Each PO DAILY Allergies Allergies: Coded Allergies: No Known Drug Allergies (Unverified , 10/17/16) ROS General: No: Chills, Other (fevers ) PSYCHOLOGICAL ROS: No: Anxiety, Depression Eyes: No Blurry vision, No Double vision HEENT: No: Heacaches, Sore Throat Hematological and Lymphatic: No: Bleeding Problems, Blood Clots Respiratory: No: Cough, Shortness of breath Cardiovascular: No Chest Pain, No Palpitations Gastrointestinal: Yes Other (see hpi) Genitourinary: No Dysuria, No Hematuria Musculoskeletal: No Joint Pain, No Muscle Pain Neurological: No Impaired Coord/balance Physical Exam General: Alert, Oriented X3, Cooperative HEENT: Atraumatic, PERRLA Lungs: Clear to auscultation, Normal air movement Heart: Regular rate, Normal S1, Normal S2 Abdomen: Soft, Other (mild ruq ttp) Extremities: No clubbing, No cyanosis Skin: No rashes, No breakdown Neuro: Normal gait, Normal speech Psych/Mental Status: Mental status NL, Mood NL MUSCULOSKELETAL: No deformity, No swelling Vitals VITALS Vital Signs Date Time Temp Pulse Resp B/P (MAP) Pulse Ox O2 Delivery O2 Flow Rate FiO2 08/02/20 07:00 98.4 58 18 153/58 (89) 95 Room Air 98.4 Labs Labs Laboratory Tests Test 08/01/20 05:26 08/01/20 07:24 08/01/20 09:47 08/01/20 11:08 White Blood Count 12.1 x10^3/uL (4.0-11.0) Red Blood Count 4.89 x10^6/uL (3.50-5.40) Hemoglobin 14.6 g/dL (12.0-15.5) Hematocrit 43.2 % (36.0-47.0) Mean Corpuscular Volume 88 fL (79-100) Mean Corpuscular Hemoglobin 30 pg (25-35) Mean Corpuscular Hemoglobin Concent 34 g/dL (31-37) Red Cell Distribution Width 13.5 % (11.5-14.5) Platelet Count 272 x10^3/uL (140-400) Neutrophils (%) (Auto) 74 % (31-73) Lymphocytes (%) (Auto) 13 % (24-48) Monocytes (%) (Auto) 7 % (0-9) Eosinophils (%) (Auto) 5 % (0-3) Basophils (%) (Auto) 1 % (0-3) Neutrophils # (Auto) 8.9 x10^3/uL (1.8-7.7) Lymphocytes # (Auto) 1.6 x10^3/uL (1.0-4.8) Monocytes # (Auto) 0.8 x10^3/uL (0.0-1.1) Eosinophils # (Auto) 0.6 x10^3/uL (0.0-0.7) Basophils # (Auto) 0.1 x10^3/uL (0.0-0.2) Sodium Level 144 mmol/L (136-145) Potassium Level 3.9 mmol/L (3.5-5.1) Chloride Level 106 mmol/L (98-107) Carbon Dioxide Level 29 mmol/L (21-32) Anion Gap 9 (6-14) Blood Urea Nitrogen 17 mg/dL (7-20) Creatinine 1.0 mg/dL (0.6-1.0) Estimated GFR (Cockcroft-Gault) 54.5 BUN/Creatinine Ratio 17 (6-20) Glucose Level 129 mg/dL (70-99) Calcium Level 9.5 mg/dL (8.5-10.1) Total Bilirubin 0.6 mg/dL (0.2-1.0) Aspartate Amino Transf (AST/SGOT) 35 U/L (15-37) Alanine Aminotransferase (ALT/SGPT) 36 U/L (14-59) Alkaline Phosphatase 181 U/L (46-116) Troponin I Quantitative < 0.017 ng/mL (0.000-0.055) < 0.017 ng/mL (0.000-0.055) Total Protein 7.1 g/dL (6.4-8.2) Albumin 3.3 g/dL (3.4-5.0) Albumin/Globulin Ratio 0.9 (1.0-1.7) Lipase 177 U/L (73-393) Urine Collection Type Void Urine Color Yellow Urine Clarity Clear Urine pH 7.0 (<5.0-8.0) Urine Specific [place] >=1.030 (1.000-1.030) Urine Protein Negative mg/dL (NEG-TRACE) Urine Glucose (UA) Negative mg/dL (NEG) Urine Ketones (Stick) Negative mg/dL (NEG) Urine Blood Negative (NEG) Urine Nitrite Negative (NEG) Urine Bilirubin Negative (NEG) Urine Urobilinogen Dipstick 0.2 mg/dL (0.2 mg/dL) Urine Leukocyte Esterase Moderate (NEG) Urine RBC 3-5 /HPF (0-2) Urine WBC 5-10 /HPF (0-4) Urine Squamous Epithelial Cells Mod /LPF Urine Transitional Epithelial Cells Occ /LPF Urine Bacteria 0 /HPF (0-FEW) SARS-CoV-2 Antigen (Rapid) Negative (NEGATIVE) Test 08/02/20 07:11 White Blood Count 9.7 x10^3/uL (4.0-11.0) Red Blood Count 4.61 x10^6/uL (3.50-5.40) Hemoglobin 13.8 g/dL (12.0-15.5) Hematocrit 40.5 % (36.0-47.0) Mean Corpuscular Volume 88 fL (79-100) Mean Corpuscular Hemoglobin 30 pg (25-35) Mean Corpuscular Hemoglobin Concent 34 g/dL (31-37) Red Cell Distribution Width 13.7 % (11.5-14.5) Platelet Count 267 x10^3/uL (140-400) Neutrophils (%) (Auto) 67 % (31-73) Lymphocytes (%) (Auto) 16 % (24-48) Monocytes (%) (Auto) 10 % (0-9) Eosinophils (%) (Auto) 5 % (0-3) Basophils (%) (Auto) 2 % (0-3) Neutrophils # (Auto) 6.5 x10^3/uL (1.8-7.7) Lymphocytes # (Auto) 1.6 x10^3/uL (1.0-4.8) Monocytes # (Auto) 0.9 x10^3/uL (0.0-1.1) Eosinophils # (Auto) 0.5 x10^3/uL (0.0-0.7) Basophils # (Auto) 0.2 x10^3/uL (0.0-0.2) Sodium Level 146 mmol/L (136-145) Potassium Level 3.6 mmol/L (3.5-5.1) Chloride Level 110 mmol/L (98-107) Carbon Dioxide Level 28 mmol/L (21-32) Anion Gap 8 (6-14) Blood Urea Nitrogen 11 mg/dL (7-20) Creatinine 0.9 mg/dL (0.6-1.0) Estimated GFR (Cockcroft-Gault) 61.5 BUN/Creatinine Ratio 12 (6-20) Glucose Level 99 mg/dL (70-99) Calcium Level 8.2 mg/dL (8.5-10.1) Total Bilirubin 0.7 mg/dL (0.2-1.0) Aspartate Amino Transf (AST/SGOT) 63 U/L (15-37) Alanine Aminotransferase (ALT/SGPT) 89 U/L (14-59) Alkaline Phosphatase 167 U/L (46-116) Total Protein 6.6 g/dL (6.4-8.2) Albumin 2.7 g/dL (3.4-5.0) Albumin/Globulin Ratio 0.7 (1.0-1.7) Laboratory Tests Test 08/01/20 09:47 08/01/20 11:08 08/02/20 07:11 SARS-CoV-2 Antigen (Rapid) Negative (NEGATIVE) Troponin I Quantitative < 0.017 ng/mL (0.000-0.055) White Blood Count 9.7 x10^3/uL (4.0-11.0) Red Blood Count 4.61 x10^6/uL (3.50-5.40) Hemoglobin 13.8 g/dL (12.0-15.5) Hematocrit 40.5 % (36.0-47.0) Mean Corpuscular Volume 88 fL (79-100) Mean Corpuscular Hemoglobin 30 pg (25-35) Mean Corpuscular Hemoglobin Concent 34 g/dL (31-37) Red Cell Distribution Width 13.7 % (11.5-14.5) Platelet Count 267 x10^3/uL (140-400) Neutrophils (%) (Auto) 67 % (31-73) Lymphocytes (%) (Auto) 16 % (24-48) Monocytes (%) (Auto) 10 % (0-9) Eosinophils (%) (Auto) 5 % (0-3) Basophils (%) (Auto) 2 % (0-3) Neutrophils # (Auto) 6.5 x10^3/uL (1.8-7.7) Lymphocytes # (Auto) 1.6 x10^3/uL (1.0-4.8) Monocytes # (Auto) 0.9 x10^3/uL (0.0-1.1) Eosinophils # (Auto) 0.5 x10^3/uL (0.0-0.7) Basophils # (Auto) 0.2 x10^3/uL (0.0-0.2) Sodium Level 146 mmol/L (136-145) Potassium Level 3.6 mmol/L (3.5-5.1) Chloride Level 110 mmol/L (98-107) Carbon Dioxide Level 28 mmol/L (21-32) Anion Gap 8 (6-14) Blood Urea Nitrogen 11 mg/dL (7-20) Creatinine 0.9 mg/dL (0.6-1.0) Estimated GFR (Cockcroft-Gault) 61.5 BUN/Creatinine Ratio 12 (6-20) Glucose Level 99 mg/dL (70-99) Calcium Level 8.2 mg/dL (8.5-10.1) Total Bilirubin 0.7 mg/dL (0.2-1.0) Aspartate Amino Transf (AST/SGOT) 63 U/L (15-37) Alanine Aminotransferase (ALT/SGPT) 89 U/L (14-59) Alkaline Phosphatase 167 U/L (46-116) Total Protein 6.6 g/dL (6.4-8.2) Albumin 2.7 g/dL (3.4-5.0) Albumin/Globulin Ratio 0.7 (1.0-1.7) Assessment/Plan Assessment/Plan symptomatic cholelithiasis plan lap megan today BHUPENDRA KAISER MD 08/02/20 1158: CONSULT Assessment/Plan Assessment/Plan Patient seen and examined by me currently resting comfortably in bed describes right upper quadrant abdominal pain. Ultrasound showing gallstones. Agree with Matty assessment plan was symptomatic cholelithiasis plan laparoscopic cholecystectomy today. Discussed procedure with the patient and her significant other NORA BUENROSTRO APRN Aug 02, 2020 08:31 BHUPENDRA KAISER MD Aug 02, 2020 11:58
--- NOTE | 2020-08-02 10:07 | NUR ---
SW following. Discussed with RN, pt from home with , room air, ad tiana. Pt having lap megan at 1400 today. SW will continue to follow.
--- NOTE | 2020-08-02 10:47 | PDOC ---
Date of Service: DATE: 08/02/20 TIME: 10:44 Objective: Objective: Reviewed chart. Vital Signs: Vital Signs Date Time Temp Pulse Resp B/P (MAP) Pulse Ox O2 Delivery O2 Flow Rate FiO2 08/02/20 07:00 98.4 58 18 153/58 (89) 95 Room Air 98.4 Labs: Laboratory Tests Test 08/01/20 11:08 08/02/20 07:11 Troponin I Quantitative < 0.017 ng/mL White Blood Count 9.7 x10^3/uL Red Blood Count 4.61 x10^6/uL Hemoglobin 13.8 g/dL Hematocrit 40.5 % Mean Corpuscular Volume 88 fL Mean Corpuscular Hemoglobin 30 pg Mean Corpuscular Hemoglobin Concent 34 g/dL Red Cell Distribution Width 13.7 % Platelet Count 267 x10^3/uL Neutrophils (%) (Auto) 67 % Lymphocytes (%) (Auto) 16 % Monocytes (%) (Auto) 10 % Eosinophils (%) (Auto) 5 % Basophils (%) (Auto) 2 % Neutrophils # (Auto) 6.5 x10^3/uL Lymphocytes # (Auto) 1.6 x10^3/uL Monocytes # (Auto) 0.9 x10^3/uL Eosinophils # (Auto) 0.5 x10^3/uL Basophils # (Auto) 0.2 x10^3/uL Sodium Level 146 mmol/L Potassium Level 3.6 mmol/L Chloride Level 110 mmol/L Carbon Dioxide Level 28 mmol/L Anion Gap 8 Blood Urea Nitrogen 11 mg/dL Creatinine 0.9 mg/dL Estimated GFR (Cockcroft-Gault) 61.5 BUN/Creatinine Ratio 12 Glucose Level 99 mg/dL Calcium Level 8.2 mg/dL Total Bilirubin 0.7 mg/dL Aspartate Amino Transf (AST/SGOT) 63 U/L Alanine Aminotransferase (ALT/SGPT) 89 U/L Alkaline Phosphatase 167 U/L Total Protein 6.6 g/dL Albumin 2.7 g/dL Albumin/Globulin Ratio 0.7 PE: GEN: NAD NEURO/PSYCH: sleeping, not awakened A/P: Epigastric pain, n/v Cholelithiasis Mildly elevated AST, ALT, and Alk Phos (better) - CBD 7.8mm on US -- Plans for cholecystectomy today, await operative findings. Justicifation of Admission Dx: Justifications for Admission: Justification of Admission Dx: Yes (BILIARY COLIC) WILTON LARKIN Aug 02, 2020 10:46
[2020-08-02 11:00] VITALS: BP 138/55
[2020-08-02] MEDS: ENOXAPARIN 40 MG/0.4 ML SYRINGE. SQ SCH (11:00)
--- NOTE | 2020-08-02 13:49 | PDOC ---
[employer] PROGRESS NOTE Date of Service DOS: DATE: 08/02/20 TIME: 13:46 Chief Complaint Chief Complaint Assessment/Plan 1. Cholelithiasis., appears to be symptomatic 2. Borderline dilated common bile duct, may relate to patient's age. correlation with biliary lab values. MRI/MRCP can further evaluate. 3. 5 mm noncalcified nodule in the right lower lobe. Nodule not previously seen. Recommend CT chest follow-up in 12 months per Fleischner Society guidelines. 4. LABILE HYPERTENSION 5. POSSIBLE UTI plan Appreciate general surgery recommendations callisthenics instructor to the OR for lap megan NPO Appreciate GI recommendations PRN IV HYDRALAZINE 10MG Q 4 HRS PRN Continue IV fluids IV morphine PRN Lovenox for Dvt prophylaxis Itzel RAMIREZ is the Discussed with RN History of Present Illness History of Present Illness 74 year old female with a past medical history of hypertension and surgical history of appendectomy presents with the chief complaint of abdominal pain. Onset of abdominal pain 2200hrs. Pain located epigastric/LUQ with radiation to right flank and to right shoulder blade. Pain has been constant since onset and fluctuates in intensity. Began after BBQ sandwich and ice cream yesterday Patient has single episode of vomiting in triage-- nursing states emesis smelled like stool. Patient states she has had urinary frequency since onset of pain but denies any dysuria. Last bowel movement was Saturday. Patient denies any chest pain or shortness of breath. 08/02/2020 No acute events overnight. Patient seen and examined bedside. Pain is controlled. Patient's chart, labs, images were reviewed and discussed with RN Vitals/I&O Vitals/I&O: Vital Signs Date Time Temp Pulse Resp B/P (MAP) Pulse Ox O2 Delivery O2 Flow Rate FiO2 08/02/20 11:00 98.4 67 18 138/55 (82) 93 Room Air 98.4 I & O 08/01/20 08/01/20 08/02/20 15:00 23:00 07:00 Intake Total 50 ml 60 ml Balance 50 ml 60 ml Physical Exam Physical Exam: GEN: No apparent distress. Alert and oriented HEENT: Normal cephalic, atraumatic, external auditory canals are patent NECK: Supple, no JVD, no thyromegaly was noted LUNGS: Bilateral crackles HEART: RRR, S1, S2 present. Peripheral pulses intact, no obvious murmurs noted ABDOMEN: Soft, epigastric tenderness positive bowel sounds, no organomegaly, normal bowel sounds EXTREMITIES: Without clubbing, cyanosis, or edema. Pedal pulses intact. Negative Homans sign General: Alert, Oriented X3, Cooperative Heart: Regular rate, Normal S1, Normal S2 Abdomen: Soft, Other (mild ruq ttp) Extremities: No clubbing, No cyanosis Skin: No rashes, No breakdown Labs Labs: Laboratory Tests Test 08/02/20 07:11 White Blood Count 9.7 x10^3/uL (4.0-11.0) Red Blood Count 4.61 x10^6/uL (3.50-5.40) Hemoglobin 13.8 g/dL (12.0-15.5) Hematocrit 40.5 % (36.0-47.0) Mean Corpuscular Volume 88 fL (79-100) Mean Corpuscular Hemoglobin 30 pg (25-35) Mean Corpuscular Hemoglobin Concent 34 g/dL (31-37) Red Cell Distribution Width 13.7 % (11.5-14.5) Platelet Count 267 x10^3/uL (140-400) Neutrophils (%) (Auto) 67 % (31-73) Lymphocytes (%) (Auto) 16 % (24-48) Monocytes (%) (Auto) 10 % (0-9) Eosinophils (%) (Auto) 5 % (0-3) Basophils (%) (Auto) 2 % (0-3) Neutrophils # (Auto) 6.5 x10^3/uL (1.8-7.7) Lymphocytes # (Auto) 1.6 x10^3/uL (1.0-4.8) Monocytes # (Auto) 0.9 x10^3/uL (0.0-1.1) Eosinophils # (Auto) 0.5 x10^3/uL (0.0-0.7) Basophils # (Auto) 0.2 x10^3/uL (0.0-0.2) Sodium Level 146 mmol/L (136-145) Potassium Level 3.6 mmol/L (3.5-5.1) Chloride Level 110 mmol/L (98-107) Carbon Dioxide Level 28 mmol/L (21-32) Anion Gap 8 (6-14) Blood Urea Nitrogen 11 mg/dL (7-20) Creatinine 0.9 mg/dL (0.6-1.0) Estimated GFR (Cockcroft-Gault) 61.5 BUN/Creatinine Ratio 12 (6-20) Glucose Level 99 mg/dL (70-99) Calcium Level 8.2 mg/dL (8.5-10.1) Total Bilirubin 0.7 mg/dL (0.2-1.0) Aspartate Amino Transf (AST/SGOT) 63 U/L (15-37) Alanine Aminotransferase (ALT/SGPT) 89 U/L (14-59) Alkaline Phosphatase 167 U/L (46-116) Total Protein 6.6 g/dL (6.4-8.2) Albumin 2.7 g/dL (3.4-5.0) Albumin/Globulin Ratio 0.7 (1.0-1.7) Assessment and Plan Assessmemt and Plan Problems Medical Problems: (1) Abdominal pain Status: Acute (2) Biliary colic Status: Acute Comment Review of Relevant I have reviewed the following items noel (where applicable) has been applied. Medications: Current Medications Medications (Trade) Dose Ordered Sig/Lynn Route PRN Reason Start Time Stop Time Status Last Admin Dose Admin Piperacillin Sod/ Tazobactam Sod 3.375 gm/Sodium Chloride 50 ml @ 100 mls/hr Q6HRS IV 08/01/20 18:00 08/02/20 12:18 Justifications for Admission Other Justification HUMA DAN MD Aug 02, 2020 13:49
[2020-08-02] MEDS ORDERED: IV RINGERS,LACTATED 1000ML 1,000 ML IV SCH (14:27)
[2020-08-02] MEDS ORDERED: MORPHINE SULFATE 2 MG/ML VIAL. IV PRN (14:30)
[2020-08-02] MEDS ORDERED: LIDOCAINE 1% PF 2 ML VIAL. ID PRN (14:30)
[2020-08-02] MEDS ORDERED: fentaNYL PF VIAL 100 MCG/2 ML VIAL IV PRN (14:30)
[2020-08-02] MEDS ORDERED: HYDROmorphone 2 MG/ML VIAL IV PRN (14:30)
[2020-08-02] MEDS ORDERED: ONDANSETRON PF 4 MG/2 ML VIAL. IV PRN (14:30)
[2020-08-02] MEDS ORDERED: PROCHLORPERAZINE 10 MG/2 ML VIAL. IV PRN (14:30)
[2020-08-02 15:00] VITALS: BP 160/63
[2020-08-02 23:26] VITALS: BP 135/50
[2020-08-03] VITALS (9 sets, daily range): BP systolic 126–172; BP diastolic 58–68
[2020-08-03 05:17] LABS: ALBUMIN 2.6 g/dL (3.4-5.0); DIRECT BILIRUBIN 0.2 mg/dL (0.0-0.2); TOTAL BILIRUBIN 0.5 mg/dL (0.2-1.0); TOTAL PROTEIN 6.6 g/dL (6.4-8.2)
[2020-08-03] MEDS: PIPERACILLIN/TAZOBACTAM 3.375 GM in IV NORMAL SALINE 50ML 50 ML IV SCH ×3 (06:07→17:43)
[2020-08-03] MEDS ORDERED: ONDANSETRON PF 4 MG/2 ML VIAL. IV PRN (07:00)
[2020-08-03] MEDS ORDERED: MORPHINE SULFATE 2 MG/ML VIAL. IV PRN (07:00)
[2020-08-03] MEDS ORDERED: LIDOCAINE 1% PF 2 ML VIAL. ID PRN (07:00)
[2020-08-03] MEDS ORDERED: fentaNYL PF VIAL 100 MCG/2 ML VIAL IV PRN ×2 (07:00)
[2020-08-03] MEDS ORDERED: IV RINGERS,LACTATED 1000ML 1,000 ML IV SCH (07:00)
[2020-08-03] MEDS ORDERED: HYDROmorphone 2 MG/ML VIAL IV PRN (07:00)
[2020-08-03] MEDS ORDERED: PROCHLORPERAZINE 10 MG/2 ML VIAL. IV PRN (07:00)
[2020-08-03] MEDS ORDERED: BUPIVACAINE-EPI 0.5%-1:200000 MPF 30 ML VIAL. ONE ×2 (07:06→10:42)
--- NOTE | 2020-08-03 09:41 | NUR ---
SW following. Discussed with RN, pt did not have surgery yesterday, plan for surgery today. SW will continue to follow.
[2020-08-03] MEDS ORDERED: ROCURONIUM 50 MG/5 ML VIAL. ONE (10:25)
[2020-08-03] MEDS ORDERED: DEXAMETHASONE SOD PHOS 4 MG/ML VIAL ONE (10:25)
[2020-08-03] MEDS ORDERED: PROPOFOL 10 MG/ML (20ML) VIAL. IV ONE (10:25)
[2020-08-03] MEDS ORDERED: LIDOCAINE 2% PF 5 ML VIAL. ONE (10:25)
[2020-08-03] MEDS ORDERED: ONDANSETRON PF 4 MG/2 ML VIAL. ONE (10:26)
[2020-08-03] MEDS ORDERED: fentaNYL PF VIAL 250 MCG/5 ML VIAL ONE (10:29)
[2020-08-03] MEDS ORDERED: SURGICEL HEMOSTAT 4X8 EACH. ONE (10:42)
[2020-08-03] MEDS ORDERED: IOHEXOL 300 MG/ML 50 ML VIAL. ONE (10:42)
--- NOTE | 2020-08-03 10:45 | PDOC ---
Date of Service: DATE: 08/03/20 TIME: 10:43 Subjective: Subjective: Feeling better, awaiting surgery. Objective: Vital Signs: Vital Signs Date Time Temp Pulse Resp B/P (MAP) Pulse Ox O2 Delivery O2 Flow Rate FiO2 08/03/20 10:16 98.7 68 15 170/79 95 Room Air 98.7 Labs: Laboratory Tests Test 08/03/20 04:15 Total Bilirubin 0.5 mg/dL Direct Bilirubin 0.2 mg/dL Aspartate Amino Transf (AST/SGOT) 49 U/L Alanine Aminotransferase (ALT/SGPT) 76 U/L Alkaline Phosphatase 158 U/L Total Protein 6.6 g/dL Albumin 2.6 g/dL PE: GEN: NAD - sitting up in bed, present LUNGS: CTAB HEART: RRR ABD: S/ND/NT NEURO/PSYCH: A & O 3 A/P: Epigastric pain, n/v - better Cholelithiasis Mildly elevated AST, ALT, Alk Phos - better HTN -- Plans for cholecystectomy today, await operative findings, follow LFTs. Justicifation of Admission Dx: Justifications for Admission: Justification of Admission Dx: Yes (BILIARY COLIC) WILTON LARKIN Aug 03, 2020 10:45
[2020-08-03] MEDS: ENOXAPARIN 40 MG/0.4 ML SYRINGE. SQ SCH (11:00)
[2020-08-03] MEDS ORDERED: GLYCOPYRROLATE 1 MG/5 ML VIAL. ONE (11:59)
[2020-08-03] MEDS ORDERED: SEVOFLURANE 61 TO 120 MINUTES. IH ONE (11:59)
[2020-08-03] MEDS ORDERED: NEOSTIGMINE METHYLSULFATE 5 MG/5 ML SYRINGE. ONE (11:59)
[2020-08-03] MEDS ORDERED: fentaNYL PF VIAL 100 MCG/2 ML VIAL ONE (12:38)
[2020-08-03] MEDS: fentaNYL PF VIAL 100 MCG/2 ML VIAL IV PRN ×2 (12:43→13:02)
--- NOTE | 2020-08-03 13:08 | PDOC4 ---
Operative Note Operative Note Date: 08/03/2020 at 1306 Preoperative diagnosis: Chronic cholecystitis with cholelithiasis Postoperative diagnosis: Same Procedure: Laparoscopic cholecystectomy Surgeon: Kirk Dictation: Patient is 74-year-old female was mated to the hospital right upper quadrant abdominal pain ultrasound showing gallstones. Procedure of laparoscopic cholecystectomy was explained to the patient detail risk-benefit were also discussed including bleeding infection injury to intra-abdominal contents possibly necessitating further or open operations alternatives to this procedure also discussed with the patient who seemed to understand and gave both verbal and written consent to have the procedure performed. Patient was taken to the operating room placed in the supine position general anesthesia was initiated once patient was sleeping intubated her abdomen was prepped and draped usual sterile fashion using ChloraPrep. An area just below the umbilicus was injected with quarter percent Marcaine with epinephrine incision was made 11 blade scalpel and a varies needle was placed within the abdomen creating pneumoperitoneum once this was complete 11 mm port was placed and a 5 mm camera was placed within the abdomen which was inspected no other abnormalities were noted. A 5 mm port was placed in the epigastrium a 5 mm port was placed in the right midabdomen and a 5 mm port was placed in the right lateral abdomen. The dome of the gallbladder is grasped retracted cephalad there is quite a few adhesions to the omentum these were taken down with blunt dissection exposing the rest of the gallbladder of the infundibulum of the gallbladder is grasped directed laterally exposing the triangle of adherent tissues the triangle were taken down exposing the cystic duct and cystic artery both were doubly clipped and transected the gallbladder was taken off the liver with hook electrocautery placed in Endo Catch bag removed and the umbilicus right upper quadrant is irrigated and suctioned dry hemostasis deemed appropriate and the pneumoperitoneum was reduced all ports were removed the fascial defect at the umbilicus closed with a [id number] 0 Vicryl suture and the skin was reapproximated all port sites for subcuticular Monocryl Mastisol Steri-Strips and island dressings were applied. Patient was awakened and extubated in the operating room taken to recovery in stable condition all sponge instrument needle counts listed as correct estimated blood loss 10 mL BHUPENDRA KAISER MD Aug 03, 2020 13:08
[2020-08-03] MEDS: IV NORMAL SALINE 1000ML BAG 1,000 ML IV SCH (13:34)
--- NOTE | 2020-08-03 13:45 | NUR ---
Patient underwent laparoscopic cholecystectomy, she came back to the unit at 1325 accompanied by her . She is alert, oriented x 4, VSS, denies pain. Lap site dressings are clean, dry , and intact. We will continue to monitor.
--- NOTE | 2020-08-03 13:45 | PDOC ---
[facility] PROGRESS NOTE Date of Service DOS: DATE: 08/03/20 TIME: 13:44 Chief Complaint Chief Complaint Assessment/Plan 1. Cholelithiasis., appears to be symptomatic 2. Borderline dilated common bile duct, may relate to patient's age. correlation with biliary lab values. MRI/MRCP can further evaluate. 3. 5 mm noncalcified nodule in the right lower lobe. Nodule not previously seen. Recommend CT chest follow-up in 12 months per Fleischner Society guidelines. 4. LABILE HYPERTENSION 5. POSSIBLE UTI plan Appreciate general surgery recommendations orthopedic physician to the OR for lap megan NPO Appreciate GI recommendations PRN IV HYDRALAZINE 10MG Q 4 HRS PRN Continue IV fluids IV morphine PRN Lovenox for Dvt prophylaxis Itzel RAMIREZ is the Discussed with RN History of Present Illness History of Present Illness 74 year old female with a past medical history of hypertension and surgical history of appendectomy presents with the chief complaint of abdominal pain. Onset of abdominal pain 2200hrs. Pain located epigastric/LUQ with radiation to right flank and to right shoulder blade. Pain has been constant since onset and fluctuates in intensity. Began after BBQ sandwich and ice cream yesterday Patient has single episode of vomiting in triage-- nursing states emesis smelled like stool. Patient states she has had urinary frequency since onset of pain but denies any dysuria. Last bowel movement was Saturday. Patient denies any chest pain or shortness of breath. 08/02/2020 No acute events overnight. Patient seen and examined bedside. Pain is controlled. Patient's chart, labs, images were reviewed and discussed with RN 08/03/2020 No acute events overnight. Patient seen in route to the OR. Patient did not voice any complaints. Patient's chart, labs, images were reviewed and discussed with RN Vitals/I&O Vitals/I&O: Vital Signs Date Time Temp Pulse Resp B/P (MAP) Pulse Ox O2 Delivery O2 Flow Rate FiO2 08/03/20 13:20 Nasal Cannula 2 08/03/20 13:14 97.4 54 20 157/48 93 97.4 I & O 08/02/20 08/02/20 08/03/20 15:00 23:00 07:00 Intake Total 0 ml 120 ml Balance 0 ml 120 ml Physical Exam Physical Exam: GEN: No apparent distress. Alert and oriented HEENT: Normal cephalic, atraumatic, external auditory canals are patent NECK: Supple, no JVD, no thyromegaly was noted LUNGS: Bilateral crackles HEART: RRR, S1, S2 present. Peripheral pulses intact, no obvious murmurs noted ABDOMEN: Soft, epigastric tenderness positive bowel sounds, no organomegaly, normal bowel sounds EXTREMITIES: Without clubbing, cyanosis, or edema. Pedal pulses intact. Negative Homans sign General: Alert, Oriented X3, Cooperative Heart: Regular rate, Normal S1, Normal S2 Abdomen: Soft, Other (mild ruq ttp) Extremities: No clubbing, No cyanosis Skin: No rashes, No breakdown Labs Labs: Laboratory Tests Test 08/03/20 04:15 Total Bilirubin 0.5 mg/dL (0.2-1.0) Direct Bilirubin 0.2 mg/dL (0.0-0.2) Aspartate Amino Transf (AST/SGOT) 49 U/L (15-37) Alanine Aminotransferase (ALT/SGPT) 76 U/L (14-59) Alkaline Phosphatase 158 U/L (46-116) Total Protein 6.6 g/dL (6.4-8.2) Albumin 2.6 g/dL (3.4-5.0) Assessment and Plan Assessmemt and Plan Problems Medical Problems: (1) Abdominal pain Status: Acute (2) Biliary colic Status: Acute Comment Review of Relevant I have reviewed the following items noel (where applicable) has been applied. Medications: Current Medications Medications (Trade) Dose Ordered Sig/Lynn Route PRN Reason Start Time Stop Time Status Last Admin Dose Admin Fentanyl Citrate (Fentanyl 2ml Vial) 50 mcg PRN Q5MIN PRN IV MODERATE TO SEVERE PAIN 08/02/20 14:30 08/03/20 14:29 08/03/20 13:02 Ringer's Solution 1,000 ml @ 30 mls/hr Q24H IV 08/03/20 07:00 08/03/20 18:59 08/03/20 12:42 Bupivacaine HCl/ Epinephrine Bitart (Sensorcain-Epi 0.5%-1:[id number] Mpf) 30 ml STK-MED ONCE .ROUTE 08/03/20 10:42 08/03/20 10:42 DC 08/03/20 11:31 Justifications for Admission Other Justification HUMA DAN MD Aug 03, 2020 13:45
[2020-08-03] MEDS ORDERED: fentaNYL PF VIAL 100 MCG/2 ML VIAL IVP PRN (18:00)
[2020-08-04] MEDS: PIPERACILLIN/TAZOBACTAM 3.375 GM in IV NORMAL SALINE 50ML 50 ML IV SCH ×3 (00:36→12:00)
[2020-08-04] MEDS: IV NORMAL SALINE 1000ML BAG 1,000 ML IV SCH (00:37)
[2020-08-04 03:00] VITALS: BP 123/51
[2020-08-04 06:16] LABS: ALBUMIN 2.7 g/dL (3.4-5.0); DIRECT BILIRUBIN 0.1 mg/dL (0.0-0.2); TOTAL BILIRUBIN 0.3 mg/dL (0.2-1.0); TOTAL PROTEIN 6.2 g/dL (6.4-8.2)
[2020-08-04 07:05] VITALS: BP 166/68
[2020-08-04] MEDS ORDERED: METOPROLOL SUCC 24HR ER 50 MG TAB.ER.24H. PO SCH ×2 (09:00→21:00)
[2020-08-04] MEDS ORDERED: amLODIPine BESYLATE 10 MG TABLET PO SCH ×2 (09:00→12:00)
[2020-08-04] MEDS ORDERED: MONTELUKAST SODIUM 10 MG TABLET. PO SCH (09:00)
[2020-08-04] MEDS ORDERED: hydroCHLOROthiazide 25 MG TABLET PO SCH (09:00)
[2020-08-04] MEDS ORDERED: MULTIVITAMIN with MINERAL TABLET. PO SCH (09:00)
[2020-08-04] MEDS ORDERED: LOSARTAN POTASSIUM 50 MG TABLET. PO SCH (09:00)
[2020-08-04] MEDS ORDERED: CETIRIZINE HCL 10 MG TABLET. PO SCH ×2 (09:00→21:00)
[2020-08-04] MEDS ORDERED: CHOLECALCIFEROL (VITAMIN D3) 1,000 UNIT TABLET PO SCH (09:00)
[2020-08-04] MEDS ORDERED: ASPIRIN ENTERIC COATED 81 MG TABLET.DR. PO SCH (09:00)
--- NOTE | 2020-08-04 10:01 | NUR ---
SW following. Discussed with RN, pt from home wit , ad tiana, low fat diet, COVID-19 negative. PT had surgery yesterday (08/03/2020), pt is wanting to discharge home today. Anticipate possible discharge today. SW will continue to follow.
--- NOTE | 2020-08-04 10:09 | PDOC ---
Date of Service: DATE: 08/04/20 TIME: 10:07 Subjective: Subjective: RUQ soreness - mild - different than pre-op pain. Tolerating diet, passing gas. Objective: Vital Signs: Vital Signs Date Time Temp Pulse Resp B/P (MAP) Pulse Ox O2 Delivery O2 Flow Rate FiO2 08/04/20 07:05 98.5 61 22 166/68 (100) 91 Room Air 98.5 08/04/20 03:00 2.0 Labs: Laboratory Tests Test 08/04/20 04:08 Total Bilirubin 0.3 mg/dL Direct Bilirubin 0.1 mg/dL Aspartate Amino Transf (AST/SGOT) 43 U/L Alanine Aminotransferase (ALT/SGPT) 66 U/L Alkaline Phosphatase 157 U/L Total Protein 6.2 g/dL Albumin 2.7 g/dL PE: GEN: NAD LUNGS: CTAB HEART: RRR ABD: soft, ice pack to RUQ, doesn't seem to tender NEURO/PSYCH: A & O 3 A/P: Cholelithiasis/cholecystitis s/p cholecystectomy (no IOC) Mildly elevated AST, ALT, Alk Phos - improving -- Dc per primary/surgery - would follow LFTs w/ PCP as outpt. Justicifation of Admission Dx: Justifications for Admission: Justification of Admission Dx: Yes (BILIARY COLIC) WILTON LARKIN Aug 04, 2020 10:09
--- NOTE | 2020-08-04 10:14 | PDOC ---
NORA BUENROSTRO PERSONNEL WORKER 08/04/20 1014: SURGICAL PROGRESS NOTE DATE: 08/04/20 TIME: 10:13 Subjective doing well pain improved tolerating diet urinating Vital Signs Vital Signs Date Time Temp Pulse Resp B/P (MAP) Pulse Ox O2 Delivery O2 Flow Rate FiO2 08/04/20 10:02 61 166/68 08/04/20 07:05 98.5 22 91 Room Air 98.5 08/04/20 03:00 2.0 I&O Intake and Output 08/04/20 07:00 Intake Total 750 ml Output Total 10 ml Balance 740 ml Intake Oral 300 ml IV Total 450 ml Output Estimated Blood Loss 10 ml # Voids 3 General: Alert, Oriented X3, Cooperative Abdomen: Soft, Other (lap dressings dry) Labs Laboratory Tests Test 08/03/20 04:15 08/04/20 04:08 Total Bilirubin 0.5 mg/dL (0.2-1.0) 0.3 mg/dL (0.2-1.0) Direct Bilirubin 0.2 mg/dL (0.0-0.2) 0.1 mg/dL (0.0-0.2) Aspartate Amino Transf (AST/SGOT) 49 U/L (15-37) 43 U/L (15-37) Alanine Aminotransferase (ALT/SGPT) 76 U/L (14-59) 66 U/L (14-59) Alkaline Phosphatase 158 U/L (46-116) 157 U/L (46-116) Total Protein 6.6 g/dL (6.4-8.2) 6.2 g/dL (6.4-8.2) Albumin 2.6 g/dL (3.4-5.0) 2.7 g/dL (3.4-5.0) Laboratory Tests Test 08/04/20 04:08 Total Bilirubin 0.3 mg/dL (0.2-1.0) Direct Bilirubin 0.1 mg/dL (0.0-0.2) Aspartate Amino Transf (AST/SGOT) 43 U/L (15-37) Alanine Aminotransferase (ALT/SGPT) 66 U/L (14-59) Alkaline Phosphatase 157 U/L (46-116) Total Protein 6.2 g/dL (6.4-8.2) Albumin 2.7 g/dL (3.4-5.0) Problem List Problems Medical Problems: (1) Abdominal pain Status: Acute (2) Biliary colic Status: Acute Assessment/Plan s/p megan ok to dc home FU 2 weeks Justicifation of Admission Dx: Justifications for Admission: Justification of Admission Dx: Yes (BILIARY COLIC) BHUPENDRA KAISER MD 08/04/20 1050: SURGICAL PROGRESS NOTE Assessment/Plan Agree with Matty assessment and plan NORA BUENROSTRO APRN Aug 04, 2020 10:14 BHUPENDRA KAISER MD Aug 04, 2020 10:50
[2020-08-04] MEDS ORDERED: HYDR-2761 PO (10:17)
[2020-08-04] MEDS: ENOXAPARIN 40 MG/0.4 ML SYRINGE. SQ SCH (11:00)
[2020-08-04 11:05] VITALS: BP 155/65
[2020-08-04] MEDS ORDERED: DOCU-153 PO (12:06)
[2020-08-04] MEDS ORDERED: SENN8.8S5 PO (12:06)
--- NOTE | 2020-08-04 12:08 | DISCH ---
DISCHARGE INSTRUCTIONS Condition on Discharge Condition on Discharge: Stable (Patient will need postoperative labs including LFTs in 1 week) Activity After Discharge Activity Instructions for Disc: Avoid exertion, Progressive ambulation Lifting Instructions after Dis: No heavy lifting Exercise Instruction after Dis: Progress as tolerated Driving Instructions after Dis: Do not drive Weight Bearing Status after Di: As tolerated Diet after Discharge Diet after Discharge: Regular Wound Incision Care Wound/Incision Care: Change dressing Wound Care Equipment: Dressings Checks after Discharge Checks after discharge: Check blood press - daily Contacting the DR. after DC Call your doctor for: If your condition worsens Follow-Up Follow up with: PCP within 1 week of discharge Follow Up With: surgery for postoperative wound check Treatment/Equipment after DC Adaptive Equipment Issued: None HUMA DAN MD Aug 04, 2020 12:07
[2020-08-04 12:40] VITALS: BP 155/65
--- NOTE | 2020-08-04 14:37 | NUR ---
Discharge Note: TORY EBCKMAN S4 SHANNAN Discharge instructions and discharge home medications reviewed with Patient and a copy given. All questions have been answered and understanding verbalized. The following instructions and handouts were given: Diet, activity, medication list and follow up instructions provided to patient. Discontinued lines and drains: Peripheral IV discontinued and catheter intact. Patient discharged to Home or Self Care with Spouse via Wheelchair
--- NOTE | 2020-08-04 21:42 | PDOC3 ---
[facility]-Dis[facility] Summary Date of Admission: Date of Admission: Aug 01, 2020 Date of Discharge: Date of Discharge: Aug 04, 2020 Admission Diagnosis: Admitting Diagnosis: 1. Cholelithiasis., appears to be symptomatic 2. Borderline dilated common bile duct, may relate to patient's age. correlation with biliary lab values. MRI/MRCP can further evaluate. 3. 5 mm noncalcified nodule in the right lower lobe. Nodule not previously seen. Recommend CT chest follow-up in 12 months per Fleischner Society guidelines. 4. LABILE HYPERTENSION 5. POSSIBLE UTI Discharge Diagnosis: Discharge Diagnosis: 1. Cholelithiasis., appears to be symptomatic 2. Borderline dilated common bile duct, may relate to patient's age. correlation with biliary lab values. MRI/MRCP can further evaluate. 3. 5 mm noncalcified nodule in the right lower lobe. Nodule not previously seen. Recommend CT chest follow-up in 12 months per Fleischner Society guidelines. 4. LABILE HYPERTENSION 5. severe protein malnutrition Consults: Consults: General Surgery Hospital Course: Hospital Course: 74 year old female with a past medical history of hypertension and surgical history of appendectomy presents with the chief complaint of abdominal pain. Onset of abdominal pain 2200hrs. Pain located epigastric/LUQ with radiation to right flank and to right shoulder blade. Pain has been constant since onset and fluctuates in intensity. Began after BBQ sandwich and ice cream yesterday Patient has single episode of vomiting in triage-- nursing states emesis smelled like stool. Patient states she has had urinary frequency since onset of pain but denies any dysuria. Last bowel movement was Saturday. Patient denies any chest pain or shortness of breath. Patient was admitted and taken to the OR by general surgery for laparoscopic cholecystectomy. Patient tolerated the procedure without any postoperative complications and was DC home after tolerating diet. The rest of the hospital course was uneventful. Disposition: Disposition/Orders: D/C to Home Activity: Activity: Resume previous activity Diet: Diet: Regular Medications: Home Meds Active Scripts Sennosides (SENNA) 8.8 Mg/5 Ml Syrup, 8.8 MG PO Q6-8HRS PRN for CONSTIPATION for 14 Days, #30 MISC Prov:HUMA DAN MD 08/04/20 Docusate Sodium (DOK) 100 Mg Capsule, 100 MG PO PRN BID PRN for HARD STOOLS for 14 Days, #60 CAP Prov:HUMA DAN MD 08/04/20 Hydrocodone Bit/Acetaminophen (HYDROCODONE-APAP 5-325 ) 1 Each Tablet, 1 TAB PO PRN Q4HRS PRN for MILD PAIN, #30 TAB Prov:NORA BUENROSTRO GOVERNMENT RELATIONS ANALYST 08/04/20 Docusate Sodium (COLACE) 100 Mg Capsule, 100 MG PO BID, #60 MG Prov:Jv WORLEY MD 10/19/16 Cetirizine Hcl (CETIRIZINE HCL) 10 Mg Tablet, 10 MG PO DAILY, #30 MG Prov:Jv WORLEY MD 10/19/16 Reported Medications Acetaminophen (ACETAMINOPHEN) 500 Mg Tablet, 1 TAB PO PRN Q6HRS PRN for pain or fever for 15 Days, #60 TAB 0 Refills 08/01/20 Metoprolol Succinate (TOPROL XL) 50 Mg Tab.er.24h, 50 MG PO DAILY 11/11/13 Montelukast Sodium (MONTELUKAST SODIUM TABLET ) 10 Mg Tablet, 10 MG PO DAILY 11/11/13 Amlodipine Besylate (AMLODIPINE BESYLATE) 10 Mg Tablet, 10 MG PO DAILY 11/11/13 Multivits-Min/Fa/Lycopene/Lut (CENTRUM SILVER TABLET) 1 Each Tablet, 1 EACH PO DAILY 11/11/13 Aspirin (ASPIR 81) 81 Mg Tablet.dr, 81 MG PO DAILY 11/11/13 Cholecalciferol (Vitamin D3) (VITAMIN D) 1,000 Unit Capsule, 1000 UNIT PO DAILY 11/11/13 Losartan/Hydrochlorothiazide (LOSARTAN-HCTZ 100-25 MG TAB) 1 Each Tablet, 1 EACH PO DAILY 11/11/13 Discontinued Reported Medications Cranberry Extract (Cranberry) 500 Mg Tablet, 500 MG PO DAILY for UTI prevention, TAB 08/01/20 Discontinued Scripts Amoxicillin/Potassium Clav (AMOX TR-K CLV 875-125 MG TAB) 1 Each Tablet, 1 TAB PO BID, #20 MG Prov:Jv WORLEY MD 10/19/16 Scheduled Amlodipine Besylate (Amlodipine Besylate), 10 MG PO DAILY, (Reported) Aspirin (Aspir 81), 81 MG PO DAILY, (Reported) Cetirizine Hcl (Cetirizine Hcl), 10 MG PO DAILY Cholecalciferol (Vitamin D3) (Vitamin D), 1,000 UNIT PO DAILY, (Reported) Docusate Sodium (Colace), 100 MG PO BID Losartan/Hydrochlorothiazide (Losartan-Hctz 100-25 Mg Tab), 1 EACH PO DAILY, (Reported) Metoprolol Succinate (Toprol Xl), 50 MG PO DAILY, (Reported) Montelukast Sodium (Montelukast Sodium Tablet ), 10 MG PO DAILY, (Reported) Multivits-Min/Fa/Lycopene/Lut (Centrum Silver Tablet), 1 EACH PO DAILY, (Reported) Scheduled PRN Acetaminophen (Acetaminophen), 1 TAB PO PRN Q6HRS PRN for pain or fever, (Reported) Docusate Sodium (Dok), 100 MG PO PRN BID PRN for HARD STOOLS Hydrocodone Bit/Acetaminophen (Hydrocodone-Apap 5-325 ), 1 TAB PO PRN Q4HRS PRN for MILD PAIN Sennosides (Senna), 8.8 MG PO Q6-8HRS PRN for CONSTIPATION Discontinued Medications Amoxicillin/Potassium Clav (Amox Tr-K Clv 875-125 Mg Tab), 1 TAB PO BID Cranberry Extract (Cranberry), 500 MG PO DAILY, (Reported) Total Time: Total Time: Total time spent was 25 minutes in preparing scripts, discharge planning with SW and RN, and preparing this discharge summary. Justicifation of Admission Dx: Justifications for Admission: Justification of Admission Dx: Yes (BILIARY COLIC) HUMA DAN MD Aug 04, 2020 21:42
--- NOTE | 2020-08-08 11:07 | PATHOLOGY ---
[facility] Accession Number: [id number] . 01 Material submitted: . gallbladder - GALLBLADDER AND CONTENTS . 01 Clinical history: . ACUTE BILIARY COLIC . 02 Diagnosis: Gallbladder, excision: - Chronic cholecystitis; negative for malignancy. - Cholesterolosis. - Cholelithiasis. . (MLK:mml; 08/05/2020) [facility] 08/08/2020 1051 Local . 02 Electronically signed: . Manish Vivar MD, Pathologist NPI- [id number] . 01 Gross description: . . The specimen is received in formalin labeled "Brown, Marva, gallbladder and contents" and consists of an intact green gallbladder measuring 5.8 x 3.7 x 1.2 cm. The margin is inked black. Opening reveals a lumen filled with viscous green bile and 2 mulberry green calculi measuring 0.4 and 0.6 cm respectively. The mucosa is green with extensive yellow stippling and an average wall thickness of 0.1 cm. No masses are identified. Weatherization Coordinator sections are submitted in A1. (SDY; 08/04/2020) SYU/SYU 08/04/2020 1308 Local . 02 Pathologist provided ICD-10: K80.10, K82.4 . 02 CPT . 189239 Specimen Comment: A courtesy copy of this report has been sent to [phone] Specimen Comment: [phone], Specimen Comment: Report sent to ,DR BELLAMY / DR WORLEY Performed at: [address] [facility] [id number] [facility] [address], [place], [place] [id number] MD Mike Vargas MD Phone: [phone] Performed at: [address] [id number] MD Yandel Ryder MD Phone: [phone]
== END 2020-08-04 13:25 | disposition home or self-care (01) | DRG 417 ==
LOC: ER 04:40 → 4 NORTH 09:36
PROVIDERS: ADMIT Family Medicine; ATTEND Family Medicine
PROC: 0FT44ZZ Resection of Gallbladder, Percutaneous Endoscopic Approach (ICD-10-PCS; principal; 2020-08-03 10:30)
DX: K80.10 Calculus of gallbladder with chronic cholecystitis without obstruction (principal); E43 Unspecified severe protein-calorie malnutrition; Z20.828 Contact with and (suspected) exposure to other viral communicable diseases; K58.9 Irritable bowel syndrome, unspecified; R35.0 Frequency of micturition; N20.0 Calculus of kidney; K76.89 Other specified diseases of liver; D25.9 Leiomyoma of uterus, unspecified; R91.1 Solitary pulmonary nodule; I10 Essential (primary) hypertension; M19.90 Unspecified osteoarthritis, unspecified site; Z90.710 Acquired absence of both cervix and uterus; Z87.01 Personal history of pneumonia (recurrent); Z82.49 Family history of ischemic heart disease and other diseases of the circulatory system; Z80.9 Family history of malignant neoplasm, unspecified; Z68.32 Body mass index [BMI] 32.0-32.9, adult
CPT/HCPCS: 36415; 74177; 76705; 80053; 80076; 81001; 83690; 84484; 85025; 87086; 87426; 88304; 93005; 94760; 96365; 96375; 99285; A7015; J1100; J2405; J2543; J2704; J2710; J2765; J3010; J3490; J7030; J7120; Q9967; G0378; U0003-CS

== ENCOUNTER → 2021-11-22 | Outpatient (CLI) | payer MEDICARE ==
[~2021-11-22] MED LIST changes: +ACET500T68 PO; +AMLO-187 PO; -AMLO10TA8 PO; +CRAN500T3 PO; +DOCU-148 PO; +IOHEXOL 300 MG/ML 100ML VIAL. IV ONE; +SENN8.8S13 PO
--- NOTE | 2021-11-22 17:01 | KCIC ---
EXAM: Chest CT without intravenous contrast. HISTORY: Pulmonary nodule. TECHNIQUE: Computed tomographic images of the chest were obtained without contrast. Multiplanar refor matting was performed. *One or more of the following individualized dose reduction techniques were utilized for this examina tion: 1. Automated exposure control. 2. Adjustment of the mA and/or kV according to patient size. 3. Use of iterative reconstruction technique. COMPARISON: 08/01/2020. FINDINGS: The heart is normal in size. The aorta is normal in caliber. There are multiple prominent m ediastinal lymph nodes. For reference purposes, there is a right paratracheal lymph node measuring 1. 1 cm. There has been slight interval increase in a 1.6 cm soft tissue nodule along the anterior peric ardium near the right anterior cardiophrenic angle. There are has also been increase in a smaller nod ule measuring 5 mm within the anterior left cardiophrenic angle and increase in a 1.2 cm nodule at th e right lung base adjacent to the suprahepatic IVC. There is no pneumothorax. There is no pleural effusion. There is a 1.1 cm pleural-based nodule at the left lung apex. There is a 3 mm nodule within the lateral right upper lobe (series 7, image 67). The re has been interval increase in a 6 mm nodule within the lateral right lower lobe (series 7, image 1 08). There has been interval increase in a 3 mm adjacent nodule (series 7, image 122). There is a clu ster of nodules within the medial right lower lobe measuring up to 4 mm, more conspicuous compared to the prior study possibly due to differences in imaging technique. There are 3 mm and 4 mm nodules at the right lung base. There are several 3 mm and 4 mm nodules within the peripheral left lower lobe. There is a former nodule within the medial left upper lobe processes series 7, image 96). There is a 3 mm nodule within the lateral left upper lobe processes series 7, image 75). There is a 5.2 cm right hepatic cyst. There is partial visualization of an 8 mm hypodense lesion with in the posterior right hepatic lobe. There is a 3 mm hypodense lesion within the anterior left hepati c lobe. There is a splenule adjacent to an otherwise unremarkable spleen. The adrenal glands and uppe r poles the kidneys and visualized portions the pancreas are unremarkable. There are degenerative dylon nges involving the spine. There is no acute or suspicious osseous finding. IMPRESSION: 1. Multiple bilateral pulmonary nodules, the largest of which is a 1.1 cm pleural-based nodule at the left lung apex. This largest nodule is excluded from the [id number]-wk-[id number] on prior studies. The lower l obe pulmonary nodules are stable to slightly increased compared to the prior exam. Given the size of the largest nodule, PET/CT or [address] follow-up is recommended. 2. Slight interval increase in nodules at and adjacent to the cardiophrenic angles, possibly due to l ymph nodes. Attention at the time of PET CT or short-term follow-up is recommended. 3. Prominent mediastinal lymph nodes. These are nonspecific and not clearly pathologically enlarged. 4. Hepatic cyst. There are additional tiny hypodense lesions within the liver which are too small to characterize. In the absence of known malignancy, these may be cysts or hemangiomas. Electronically signed by: Anamika Dowd MD (11/22/2021 4:59 PM) [id number]
== END ==
LOC: KCIC CT 13:37
PROVIDERS: ATTEND Family Medicine
DX: R91.8 Other nonspecific abnormal finding of lung field (principal); I89.8 Other specified noninfective disorders of lymphatic vessels and lymph nodes; K76.89 Other specified diseases of liver; M47.819 Spondylosis without myelopathy or radiculopathy, site unspecified
CPT/HCPCS: 71260; 82565; Q9967

== ENCOUNTER → 2022-01-05 | Outpatient (CLI) | payer MEDICARE ==
[~2022-01-05] MED LIST changes: -IOHEXOL 300 MG/ML 100ML VIAL. IV ONE
--- NOTE | 2022-01-05 11:02 | RAD ---
EXAM: PET/CT skull base to thigh. HISTORY: Pulmonary nodule. TECHNIQUE: CT of the body from the skull base to the upper thighs was performed for the purposes of a ttenuation correction. 13 mCi F-18 fluorodeoxyglucose were administered intravenously. Blood glucose level at the time of administration was 91 mg/dL. After 45 minutes uptake, positron emission tomograp hy of the body was performed. The PET and CT data were fused and interpreted in combination on a [employer] workstation. Reported standard uptake values (SUV) are the maximum SUV within a lesional volume tric region of interest. SUV normalization is via body mass. COMPARISON: 11/22/2021 and 08/01/2020. FINDINGS: Mediastinal blood pool SUV reference value: 5.4. There is increased radiotracer activity a maximum SUV of 4.5 associated with a 1.1 cm pleural-based n odule at the left lung apex. There is mild increased radiotracer activity with a maximum SUV of 2.1 a ssociated with a 9 mm right middle lobe pulmonary nodule. There is increased radiotracer activity wit hin the adjacent right hilum measuring 5.1, possibly vascular or associated with a nonenlarged nonspe cific and not enlarged lymph node. There is asymmetric increased radiotracer activity within an asymmetrically enlarged left greater lexi n right thyroid lobe, with maximum SUVs of 10.0 compared to 5.4. There is mild increased radiotracer activity within SUV of 2.8 associated with a 1.5 cm nodule within the pericardial fat of the anterior right cardiophrenic angle. There is a focus of increased radiotracer activity within the proximal transverse colon with an SUV o f 7.0. This may be due to background physiologic bowel activity. There is mild radiotracer activity w ithin SUV of 1.8 associated with a suspected granuloma within the left buttock subcutaneous fat. There is increased radiotracer activity within SUV of 4.0 associated with a 1.1 cm focus of fatty str anding within the left paracolic gutter adjacent to the distal descending colon. The CT portion of the exam demonstrates a stable 1.1 cm pleural-based nodule at the left lung apex. T here is a 4 mm nodule within the lateral right upper lobe, 9 mm nodule within the right middle lobe, 6 mm nodule within the right lower lobe. There are additional tiny nodules demonstrated on the prior CT which are less well seen on this exam due to respiratory motion and differences in technique. Ther e are is a stable 1.4 cm nodule at the right cardiophrenic angle. There is a 1.5 cm nodule within the pericardial fat of the anterior right cardiophrenic angle. The heart is normal in size. The aorta is normal in caliber. There are stable prominent mediastinal lymph nodes. There is no minimal coronary artery calcification. There is no neck lymphadenopathy. There is a heterogeneous thyroid without discrete nodule. No axilla ry lymphadenopathy is seen. There is a 4.9 cm hepatic cyst. There are additional smaller hypodense le sions within the liver which are also likely cysts. The gallbladder is absent. The pancreas, stomach and adrenal glands are unremarkable. There is a splenule adjacent to an otherwise unremarkable spleen . There is a small simple cyst within the left kidney measuring 1.8 cm. There has been partial bowel resection, with associated anastomosis within the right ventral abdomen. There is moderate colonic stool. There is a new rounded focus of fatty stranding within the left par acolic gutter measuring 1.1 cm, likely due to the sequela epiploic appendagitis. There is a calcified uterine fibroid. The bladder is unremarkable. The aorta is normal in caliber. There are degenerative changes throughout the spine. IMPRESSION: 1. Radiotracer avid 1.1 cm left apical pleural-based nodule within maximum SUV of 4.5. This degree of radiotracer activity within a nodule this size is concerning for a neoplastic etiology. 2. Minimal radiotracer activity within a 9 mm right middle lobe nodule with a maximum SUV of 2.1. Thi s nodule remains indeterminant and likely beyond the inferior limits in size for correct assessment w ith PET/CT. There are few additional nodule is better demonstrated on the prior CT which are also lik elizabeth inferior to limits in size for assessment with PET/CT. 3. Radiotracer avid 1.5 cm nodule within the anterior right cardio phrenic angle with an SUV of 2.8. This is nonspecific and possibly an enlarged cardiac phrenic angle lymph node. There is focal radiotr acer activity with an SUV of 5.1 within the right hilum, possibly vascular or due to a nonenlarged hi lar lymph node. 4. Focal radiotracer activity within SUV of 4.2 associated with a 1.1 cm focus of fatty stranding wit hin the left paracolic gutter adjacent to the descending colon, the appearance of which favors change s due to epiploic appendagitis or fat infarction. This is new compared to the prior abdomen and pelvi s CT. Correlate with symptomatology. 5. Asymmetric increased radiotracer activity within the left thyroid lobe with an SUV of 10.0. Correl ate with thyroid sonography. 6. Focus of increased radiotracer activity within the proximal transverse colon. There is no convinci ng CT correlate. This may be due to background bowel activity. Correlate with prior colonoscopy findi ngs. 7. No significant radiotracer activity above the blood pool associated with a nodule at the posterior right cardiophrenic angle adjacent to the suprahepatic vena cava. 8. Please refer to the above report for additional findings regarding the non-PET portion of the exam . Electronically signed by: Anamika Dowd MD (01/05/2022 11:00 AM) [id number]
== END ==
LOC: PETSC 07:48
PROVIDERS: ATTEND Family Medicine
DX: R91.8 Other nonspecific abnormal finding of lung field (principal); K76.89 Other specified diseases of liver; D25.9 Leiomyoma of uterus, unspecified
CPT/HCPCS: 78815; A9552

== ENCOUNTER → 2022-01-29 | Outpatient (CLI) | payer MEDICARE ==
--- NOTE | 2022-01-29 17:28 | RAD ---
EXAM: ULTRASOUND SOFT TISSUE NECK CLINICAL HISTORY: Reason: Thyroid Nodule; Abnormal PET Scan 01-05-22;Increased radiotracer LT Thyroid / COMPARISON: [facility] PET/CT, skull base to upper thighs January 05, 2022. TECHNIQUE: Ultrasound examination of the thyroid gland was performed FINDINGS: Sonographic evaluation of the thyroid gland was performed and evaluated using ACR TI-RADS criteria. Right thyroid lobe measures 4.7 x 1.5 x 1.8 cm and is heterogeneous. There is a TR3 nodule of the mid right thyroid lobe with maximum dimension of 1.6 cm. The isthmus measures 2 mm AP. The left thyroid lobe measures 4.4 x 1.5 x 2.3 cm. There is a TR3 nodule of the inferior left thyroid lobe with maximum dimension of 2 cm. This nodule was noted to be FDG avid. IMPRESSION: There are TR3 nodules of the right and left thyroid lobe that meet size criteria for follow-up ultras ound in 12 months. Given the FDG avidity of the left thyroid nodule consider ultrasound-guided FNA. Electronically signed by: Paul Fam MD (01/29/2022 5:25 PM) [id number]
== END ==
LOC: US 15:38
PROVIDERS: ATTEND Family Medicine
DX: E04.2 Nontoxic multinodular goiter (principal)
CPT/HCPCS: 76536

== ENCOUNTER → 2022-02-21 | Outpatient (CLI) | payer MEDICARE ==
[~2022-02-21] MED LIST changes: +LIDOCAINE 1% Multi-Dose 20 ML VIAL. INJ ONE
--- NOTE | 2022-02-21 11:24 | RAD ---
Ultrasound-guided fine-needle aspiration of the thyroid gland History: Left thyroid nodule Procedure: The patient provided both verbal and written consent after the procedure and possible comp lications including bleeding and infection were explained. A timeout was performed which confirmed th e name of the patient and the date of and the type of procedure and the side of the procedure. Allergies to medications were reviewed. Sonography of the thyroid gland was performed. The anterior aspect of the left side of the neck was prepped and draped in the usual sterile fashion with ChloraPr ep. A total of [5] cc of 1% lidocaine was utilized for local anesthesia. Using sterile technique and ultrasound guidance, [4] separate 25-gauge fine-needle aspirations of the solid nodule of the [left] lobe of the thyroid gland were performed. Subsequently, a [employer] 20-gauge biopsy device was used to ob tain 3 core ultrasound-guided biopsies of the solid left thyroid nodule.The samples were placed into [employer]. These aspirations were processed on slides and placed into [employer]to[employer]te. The specimens were sent to [facility] guy for further processing and evaluation. Hemostasis was deemed adequate after 3 minutes of manua l pressure. Post procedure sonography demonstrated no significant hematoma. The patient tolerated the procedure well without complication. Sterile Band-Aid was applied to [left] side of the neck. The pa tient was given instructions to return to the emergency room if there is significant swelling or blee ding in the neck. Impression: Ultrasound-guided fine-needle aspiration biopsy of the solid nodule of the [left] lobe of the thyroid gland was performed without complication. Follow-up will be with the patient's physician . Electronically signed by: Carl Bradshaw DO (02/21/2022 11:21 AM) [id number]
== END | disposition home or self-care (01) ==
LOC: US 10:01
PROVIDERS: ATTEND Surgery
DX: E04.1 Nontoxic single thyroid nodule (principal); I10 Essential (primary) hypertension; M19.90 Unspecified osteoarthritis, unspecified site; Z79.82 Long term (current) use of aspirin; Z79.899 Other long term (current) drug therapy; Z98.890 Other specified postprocedural states
CPT/HCPCS: 10005; C1819

== ENCOUNTER 2022-03-13 08:34 | Outpatient (CLI) | payer BC, MEDICARE ==
[2022-03-13] VITALS (18 sets, daily range): BP systolic 126–143; BP diastolic 55–83
[~2022-03-13] VITALS: Ht 165.1 cm; Wt 85.0 kg
[~2022-03-13 08:34] MED LIST changes: -LIDOCAINE 1% Multi-Dose 20 ML VIAL. INJ ONE
[2022-03-13] MEDS ORDERED: LOSA100T14 PO (09:47)
[2022-03-13 09:51] LABS: BASO % 0 % (0-3); EOS # 0.7 x10^3/uL (0.0-0.7); EOS % 8 % (0-3); HEMOGLOBIN 15.5 g/dL (12.0-15.5); LYMPH # 1.6 x10^3/uL (1.0-4.8); LYMPH % 18 % (24-48); MEAN CORPUSCULAR HEMOGLOBIN 29 pg (25-35); MEAN CORPUSCULAR HGB CONC 33 g/dL (31-37); MEAN CORPUSCULAR VOLUME 87 fL (79-100); MONO # 0.8 x10^3/uL (0.0-1.1); MONO % 9 % (0-9); NEUT # 5.9 x10^3/uL (1.8-7.7); NEUT % 65 % (31-73); PLATELET COUNT 299 x10^3/uL (140-400); RED CELL DISTRIBUTION WIDTH 13.9 % (11.5-14.5)
[2022-03-13 10:00] LABS: PROTHROMBIN TIME PATIENT 12.5 SEC (11.7-14.0)
[2022-03-13] MEDS ORDERED: LIDOCAINE WITH 8.4% SOD BICARB 3 ML DISP.SYRIN. ONE (11:09)
[2022-03-13] MEDS ORDERED: fentaNYL PF VIAL 100 MCG/2 ML VIAL ONE (11:19)
[2022-03-13] MEDS ORDERED: MIDAZOLAM HCL/PF 2 MG/2 ML VIAL. ONE (11:19)
[2022-03-13] MEDS ORDERED: MIDAZOLAM HCL/PF 2 MG/2 ML VIAL. IV ONE (11:30)
[2022-03-13] MEDS ORDERED: LIDOCAINE WITH 8.4% SOD BICARB 3 ML DISP.SYRIN. IJ ONE (11:30)
[2022-03-13] MEDS ORDERED: fentaNYL PF VIAL 100 MCG/2 ML VIAL IV ONE (11:30)
--- NOTE | 2022-03-13 13:07 | PDOC ---
MODERATE SEDATION ASSESSMENT RISKS/ALTERNATIVES Risks/Alternatives Risks and alternatives of this type of sedation and procedure discussed with: RISK/ALTERNATIVES: Patient H & P ON CHART H & P H & P on chart and reviewed for co-morbid conditions and appropriate labs. H&P ON CHART: Yes STATUS PREG STATUS ASSESSED: Yes MEDS/ALLERGIES REVIEWED Meds/Allergies Reviewed Medications and Allergies including time and route of recently administered narcotics and sedatives. MEDS/ALLERGIES REVIEWED: Yes ASA RATING ASA RATING: II AIRWAY ASSESSMENT Airway Assessment Airway patency, oral function limitations, presence of caps, crowns, dentures, partials, and ability to extend neck assessed. AIRWAY ASSESSMENT: Yes MALLAMPATI SCORE MALLAMPATI SCORE: II PRE-SEDATION ASSESSMENT PRE-SEDATION ASSESSMENT: Yes BERT URBINA MD Mar 13, 2022 13:07
--- NOTE | 2022-03-13 14:08 | RAD ---
Procedure: Ultrasound-guided right IJ peripheral venous line placement followed by CT-guided biopsy o f a pericardiophrenic lymph node. Clinical Indication: 76-year-old female with multiple small lung nodules, abnormal pericardiophrenic lymph node, and cellular atypia on recent thyroid FNA. Patient also has abnormalities of the colon an d is scheduled for colonoscopy in the near future. Sedation: Conscious sedation using a combination of Versed and fentanyl was provided for 35 minutes, including continuous monitoring of the patients heart rate, rhythm, blood pressure, oxygen saturation and level of arousability by a trained independent observer. Sterility: The procedure was performed in its entirety using appropriate elements of sterile techniqu e. Consent: The procedure was explained in its entirety to the patient or the patients designated repres entative by a member of the treatment team, including a discussion of the risks, benefits and commonl y accepted alternatives to the procedure, as well as the expected consequences of not performing the procedure. Discussion of the risks included, but was not limited to, those that are most frequent an d those that are rare but possibly severe or life-threatening, as well as the possibility of unforese en complications. Technique and Findings: Following informed consent, the patient was prepped and draped in usual steri le fashion. A CT scan of the area of interest was performed with patient in multiple positions, in order to ascer tain separability of percutaneous biopsy. The left apical lung nodule which is sequestered in close p roximity to the subclavian artery and brachial plexus was felt to be too high risk for percutaneous b iopsy. There is a small subcentimeter nodule in the right middle lung which is deep indirectly adjace nt to a mid-level bronchus, which taken together with its depth and small size make a poor target for percutaneous biopsy as well. The final lesion is a pericardiophrenic lymph node which is suitable in size for biopsy but is difficult to access given its location. With patient in a left lateral decubi tus position, a possible percutaneous route to the pericardiophrenic lymph node was identified. Unfor tunately with difficulty placing a peripheral IV. Consequently the decision was made to place a left IJ peripheral venous catheter to facilitate conscious sedation. The left neck was prepped and draped in usual sterile fashion. Ultrasound interrogation of the left neck was performed demonstrating paten cy of the left internal jugular vein. A hardcopy ultrasound image was recorded as a 21-gauge micropun cture needle was used to gain access to this vein. The needle was exchanged over wire for a 4 Algerian venous catheter, which was used to administer conscious sedation. The left chest wall was then preppe d and draped in usual sterile fashion. 1 percent lidocaine was used to achieve local anesthesia. Unde r CT surveillance, a 19-gauge needle guide was advanced to the left chest wall and through the parast ernal space into the pericardiophrenic space and multiple separate 20-gauge core biopsy passes were p erformed yielding scant tissue fragments which were preserved in formalin and RPMI for analysis. The needle guide was removed and hemostasis was achieved with manual compression. Complications: No immediate Impression: 1. Diagnostic CT scan demonstrating left apical lung nodule which is not amenable to percutaneous bio psy due to its small size and high risk proximity to the left subclavian artery and brachial plexus. There is also a subcentimeter right midlung nodule which is very low yield for percutaneous biopsy gi wang its depth and small size, and somewhat increased in risk due to its direct proximity to mid-level bronchus. Finally there is a pericardiophrenic lymph node which was deemed amenable to attempted per cutaneous biopsy through very small intercostal window. 2. Failed peripheral IV access. Consequently, ultrasound-guided left internal jugular venous access w as performed. 3. CT-guided biopsy of a pericardiophrenic lymph node as described. Multiple small tissue fragments w ere obtained and divided between formalin and RPMI. If this biopsy is nondiagnostic, recommendation i s for video-assisted thorascopic evaluation with direct tissue sampling versus imaging surveillance. PQRS Compliance Statement: One or more of the following individualized dose reduction techniques were utilized for this examinat ion: 1. Automated exposure control 2. Adjustment of the mA and/or kV according to patient size 3. Use of iterative reconstruction technique Electronically signed by: Jhoan Cabrera MD (03/13/2022 2:05 PM) [id number]
--- NOTE | 2022-03-13 15:21 | NUR ---
Discharge Note: TORY BECKMAN Discharge instructions and discharge home medications reviewed with Patient and a copy given. All questions have been answered and understanding verbalized. The following instructions and handouts were given: adult moderate sedation and incision site care Discontinued lines and drains: Central Line intact, no bleeding and dressing applied. Instructed patient to remain upright for the next hour. [facility]
--- NOTE | 2022-03-19 10:08 | PATHOLOGY ---
[facility] Accession Number: [id number] . 01 Material submitted: . lymph node - PERICARDIAL LYMPH NODE LEFT. Modifiers: PERICARDIAL, left . 02 Diagnosis: Segments of skeletal muscle tissue and lymph node, left pericardial lymph node needle biopsy: - No significant pathologic abnormalities. (ANDREINAM:abdi; 03/16/2022) MBR 03/16/2022 1708 Local . 02 Comment: Sections of the left pericardial lymph node biopsy reveal multiple small segments of skeletal muscle tissue and lymph node. The segments of lymph node appear to show a preserved sharon architecture. The lymph node is composed predominantly of small round lymphocytes. There are focally admixed plasma cells. There are preserved sharon sinuses containing red blood cells and a few lymphocytes and histiocytes. There is no evidence of metastatic neoplasm. There are no Yossi-Kim cells or atypical large lymphoid cells noted. . A portion of the specimen that is submitted for flow cytometric analysis has a viability of 81.4%. B-cells are polyclonal, and T-cells show no loss of T-cell antigens. There is no flow immunophenotypic evidence of a B-cell or T-cell lymphoproliferative disorder. . To confirm flow cytometric findings and characterize the target cells in a tissue architectural context, immunoperoxidase stain for cytokeratin ALINA, and in situ hybridization for kappa and lambda light chain are obtained and yield the following results: . Cytokeratin ALINA (A1): No evidence of metastatic carcinoma. Robards and lambda NADER (A3): Plasma cells are polyclonal. . The findings are supportive of the diagnosis of a benign lymph node. However, the material submitted represents only a small sampling of the lymph node such that I cannot exclude a focal lesion elsewhere in the lymph node. Results are discussed with Dr. Lira on 03/16/22. . Special stains performed: Robards and lambda NADER on A3, and cytokeratin ALINA on A1. . (JPM:backrest assembler; 03/16/2022) . 02 Electronically signed: . García Coats MD, Pathologist NPI- [id number] . 01 Gross description: . The specimen is received in formalin, labeled "Brown, Marva, lymph node bx". Received are multiple, corona-white to pink, fragments of soft tissue, ranging in size from 0.1-0.5 cm, in greatest dimension. The specimen is filtered and entirely submitted in cassettes A1 to A3. (J; 03/13/2022) J/[facility] 03/14/2022 1108 Local . 02 Pathologist provided ICD-10: R59.1 . 02 CPT . 760254 Specimen Comment: A courtesy copy of this report has been sent to [phone], [phone] Specimen Comment: [id number], Specimen Comment: Report sent to , DR WORLEY / DR LIRA Performed at: 01 [facility] [address], [place] [id number] MD Austin Briseno MD Phone: [phone] Performed at: 02 [facility] [address], [place] [id number] MD García Coats MD Phone: [phone]
== END 2022-03-13 15:15 | disposition home or self-care (01) ==
LOC: INTRAD 08:34
PROVIDERS: ATTEND Internal Medicine Pulmonary Disease
DX: R59.1 Generalized enlarged lymph nodes (principal); R91.8 Other nonspecific abnormal finding of lung field; I10 Essential (primary) hypertension; M19.90 Unspecified osteoarthritis, unspecified site; Z90.49 Acquired absence of other specified parts of digestive tract; Z98.890 Other specified postprocedural states; Z79.899 Other long term (current) drug therapy; Z88.8 Allergy status to other drugs, medicaments and biological substances
CPT/HCPCS: 36415; 38505; 77012; 85025; 85610; 88184; 88185; 88305; 99152; 99153; J2250; J3010; J3490